=== PATIENT | female | born 1955 | race Caucasian/White ===

== ENCOUNTER 2021-03-20 20:01 | Inpatient (IN) | payer OTHER ==
[~2021-03-20] VITALS: Ht 172.7 cm; Wt 57.2 kg
[2021-03-20] MEDS: POTASSIUM CHLORIDE 50 ML IV SCH ×2 (00:05→22:03)
[2021-03-20] MEDS ORDERED: IV NORMAL SALINE 1000 ML BAG IV ONE (20:30)
[2021-03-20 20:58] LABS: MEAN CORPUSCULAR VOLUME 79.3 fL (75.5-95.3); PLATELET COUNT (AUTO) 281 K/uL (179-408)
[2021-03-20 21:05] LABS: MAGNESIUM 1.6 mg/dL (1.8-2.4)
[2021-03-20 21:17] LABS: ABG BASE EXCESS 17.8 mmol/L; ABG PCO2 64.6 mmHg (35.0-45.0); ABG PH 7.451 (7.350-7.450); ABG PO2 82.2 mmHg (75.0-100.0); ABG SITE LEFT BRACHIAL; ABG TOTAL HEMOGLOBIN 8.3 G/dL (12.0-16.0); COHb 1.1 % (0.5-1.5); O2Hb 94.2 % (94.0-97.0)
[2021-03-20 21:17] LABS: BILIRUBIN,DIRECT 0.2 mg/dL (0.0-0.2); BILIRUBIN,TOTAL 0.5 mg/dL (0.2-1.0); THYROID STIMULATING HORMONE 3.178 mIU/mL (0.358-3.740); TOTAL PROTEIN, SERUM 5.8 g/dL (6.4-8.2)
[2021-03-20 21:19] LABS: POTASSIUM 2.1 mmol/L (3.5-5.1)
[2021-03-20] MEDS ORDERED: MAGNESIUM SULFATE/D5W 300 ML ONE (21:59)
[2021-03-20] MEDS ORDERED: POTASSIUM CHLORIDE 200 ML ONE (21:59)
[2021-03-20] MEDS: MAGNESIUM SULFATE/D5W 100 ML IV SCH ×3 (22:03→23:47)
[2021-03-20] MEDS ORDERED: IV NORMAL SALINE 250 ML IV ONE (22:04)
[2021-03-20] MEDS ORDERED: SWABABLE VALVE TRANSFER SET EA MC ONE (22:04)
[2021-03-20] MEDS ORDERED: IOHEXOL 350 100 ML INFUS..BTL ONE (22:04)
[2021-03-20] MEDS ORDERED: DEXAMETHASONE SOD PHOSPHATE 4 MG INJ IV ONE (22:15)
--- NOTE | 2021-03-20 22:25 | NUR ---
Patient placed on Bipap by RT with Rate of 12, 02 at 100%.
--- NOTE | 2021-03-20 22:26 | NUR ---
PATIENT OUT OF UNIT FOR CT SCAN VIA GURNY WITH RT AND CNC TECHNICIAN
--- NOTE | 2021-03-20 22:38 | NUR ---
PATIENT BACK FROM CT SCAN WITH NO DISTRESS NOTED.
[2021-03-20] MEDS ORDERED: DEXAMETHASONE SOD PHOSPHATE 4 MG INJ ONE (23:06)
[2021-03-20] MEDS ORDERED: BACL10TA PO (23:18)
[2021-03-20] MEDS ORDERED: ESCI10TA PO (23:18)
[2021-03-20] MEDS ORDERED: LEVO175T7 PO (23:18)
[2021-03-20] MEDS ORDERED: AMYL1CAP56 PO (23:18)
[2021-03-20] MEDS ORDERED: norco PO (23:18)
[2021-03-20] MEDS ORDERED: PANT40TA49 PO (23:18)
[2021-03-20] MEDS: CHOLECALCIFEROL 1,000 UNIT TABLET PO SCH (23:30)
--- NOTE | 2021-03-20 23:42 | NUR ---
Dr Escobedo spoke with Tara [facility] [employer] aeronautical drafter for Epic panel who accepts her to ICU.
[2021-03-20] MEDS ORDERED: ACETAMINOPHEN 650 MG SUPP.RECT RC PRN (23:45)
[2021-03-20] MEDS ORDERED: CEFTRIAXONE 1 G in IV DEXTROSE 5% 50 ML IV SCH (23:45)
[2021-03-20] MEDS ORDERED: ALBUTEROL SULFATE 8 GM HFA.AER.AD IH PRN (23:45)
[2021-03-21] VITALS (84 sets, daily range): BP systolic 72–144; BP diastolic 14–114
[2021-03-21] MEDS ORDERED: BUMETANIDE 1 MG/4 ML VIAL IV ONE
[2021-03-21] MEDS ORDERED: CHOLECALCIFEROL 1,000 UNIT TABLET ONE (00:10)
[2021-03-21] MEDS: POTASSIUM CHLORIDE 50 ML IV SCH ×6 (00:30→14:39)
[2021-03-21] MEDS ORDERED: CEFTRIAXONE /D5W 50ML IVPB **ER PYXIS IV ONE (00:45)
[2021-03-21] MEDS ORDERED: AZITHROMYCIN 500MG/ D5W 250ML IVPB **ER PYXIS ONLY IV ONE (00:45)
--- NOTE | 2021-03-21 01:18 | NUR ---
Transfered to ccu via gurny with no distress noted.
--- NOTE | 2021-03-21 01:20 | NUR ---
KCL 10meq IVP 3rd bag continue to infuse at CCU. Gave 4th bag of KCL 10meq to ICU nurse to infuse with zithromax 250mg IVPB.
[2021-03-21] MEDS ORDERED: HYDROCODONE/APAP 5-325MG TABLET PO PRN (01:30)
--- NOTE | 2021-03-21 01:30 | NUR ---
received patient and report from raman , patient on 100 % non rebreather , cool skin to touch , incontinent ,, awake , oriented able to follow simple command , picc line intact on shawn, t tube drain on left lateral /back , bag is empty , incision site on the right lateral back , no signs of infection noted , , abdominal incision , dressing intact , patient is poor historian , no family emergency given by patient when asked , belongings include , tab , 2 cell phones , hot car charger , sweater , shirt and pants, pjs and wallet with id , one credit card and $ 78 in tello
--- NOTE | 2021-03-21 01:45 | NUR ---
patien is placed on bipap 15/5 12 at 100 % fio2
[2021-03-21] MEDS: AZITHROMYCIN IV 500 MG in IV DEXTROSE 5% 250 ML IV SCH ×2 (01:56→21:07)
--- NOTE | 2021-03-21 02:00 | NUR ---
vasques catheter insertion offered , refused
--- NOTE | 2021-03-21 02:15 | NUR ---
kvng lopez is called informed of curent status and vs of the patient , received order of levophed iv
[2021-03-21] MEDS ORDERED: NOREPINEPHRINE BITARTRATE 32 MG in IV NORMAL SALINE 218 ML IV PRN ×2 (02:30→09:00)
[2021-03-21] MEDS ORDERED: NOREPINEPHRINE BITARTRATE 4 MG/4 ML VIAL IV ONE (02:44)
--- NOTE | 2021-03-21 03:23 | NUR ---
kvng lopez is at bedside
[2021-03-21 05:57] LABS: ABG HCO3 40.6 mmol/L; ABG PO2 62.6 mmHg (75.0-100.0); ABG SITE LEFT BRACHIAL; ABG TOTAL HEMOGLOBIN 9.6 G/dL (12.0-16.0); COHb 0.3 % (0.5-1.5); MetHb 0.5 % (0.0-1.5); O2Hb 88.7 % (94.0-97.0); VENT MODE BIPAP
--- NOTE | 2021-03-21 06:00 | NUR ---
vasques catheter offered and refused
[2021-03-21 06:11] LABS: MEAN CORPUSCULAR HEMOGLOBIN 25.5 uug (24.7-32.8); MEAN CORPUSCULAR VOLUME 79.5 fL (75.5-95.3); PLATELET COUNT (AUTO) 391 K/uL (179-408)
[2021-03-21 06:29] LABS: ALANINE AMINOTRANSFERASE < 6 U/L (14-59); ALKALINE PHOSPHATASE 124 U/L (50-136); ASPARTATE AMINOTRANSFERASE 34 U/L (15-37); BILIRUBIN,TOTAL 0.4 mg/dL (0.2-1.0); CHLORIDE 96 mmol/L (98-107); CREATININE 0.9 mg/dL (0.6-1.3); GLUCOSE 179 mg/dL (74-106); TOTAL PROTEIN, SERUM 6.5 g/dL (6.4-8.2); UREA NITROGEN, BLOOD 21 mg/dL (7-18)
--- NOTE | 2021-03-21 06:45 | NUR ---
dr zacarias is called to notify of abg results
[2021-03-21 07:07] LABS: CARBON DIOXIDE 45 mmol/L (21-32); POTASSIUM 2.7 mmol/L (3.5-5.1)
--- NOTE | 2021-03-21 07:16 | NUR ---
dr mancuso gave order of bipap rate of 16 , rt notified
[2021-03-21] MEDS ORDERED: LEVOTHYROXINE SODIUM 175 MCG TABLET PO SCH (07:30)
[2021-03-21] MEDS ORDERED: NOREPINEPHRINE BITARTRATE 8 MG in IV NORMAL SALINE 242 ML IV PRN (08:00)
[2021-03-21] MEDS: LIPASE/PROTEASE/AMYLASE 4200 UNITS CAPSULE.DR PO SCH ×2 (08:16→12:59)
[2021-03-21] MEDS: Z GUARD REMEDY PASTE 57 GM TUBE TOP SCH ×2 (08:19→21:07)
[2021-03-21] MEDS: CHOLECALCIFEROL 1,000 UNIT TABLET PO SCH (08:19)
[2021-03-21] MEDS: BACLOFEN 10 MG TABLET PO SCH ×2 (08:19→16:19)
[2021-03-21] MEDS ORDERED: DEXAMETHASONE SOD PHOSPHATE 4 MG INJ IV SCH (09:00)
[2021-03-21] MEDS ORDERED: ESCITALOPRAM OXALATE 10 MG TABLET PO SCH (09:00)
[2021-03-21] MEDS ORDERED: MAGNESIUM SULFATE/D5W 100 ML IV SCH ×2 (09:00→09:15)
[2021-03-21 09:11] LABS: MAGNESIUM 2.7 mg/dL (1.8-2.4); PHOSPHOROUS 3.1 mg/dL (2.5-4.9)
[2021-03-21] MEDS: FAMOTIDINE. 20 MG/2 ML VIAL IV SCH ×2 (10:22→21:05)
[2021-03-21] MEDS: ACETAzolamide SODIUM 500 MG VIAL IV SCH (10:22)
[2021-03-21] MEDS: ENOXAPARIN SODIUM 40 MG/0.4 ML DISP.SYRIN SQ SCH (10:24)
[2021-03-21] MEDS ORDERED: REMDESIVIR (CHARGED) 200 MG in IV NORMAL SALINE 210 ML IV ONE (11:00)
--- NOTE | 2021-03-21 11:32 | NUR ---
WOUND CARE CONSULT: REVIEWED CHART, NURSING DOCUMENTATION AND PHOTOS WHICH INDICATE SACRAL BONY AREA WITH INTACT DEEP TISSUE INJURY, DISCOLORATION TO FOOT AND SURGICAL SCAR TO ABDOMEN, PRESENT ON ADMISSION. RECOMMENDATIONS MADE FOR SKIN PROTECTION. DISCUSSED WITH NURSING STAFF. PT HAS BIPAP. FIRST STEP LOW AIRLOSS MATTRESS IS ON ORDER. IN AGREEMENT WITH PLAN OF CARE. Addendum: 03/21/21 at 1148 by CHERRY DE LA PAZ RN PER RN, THERE IS A PANCREATIC DRAIN WITH NO DRAINAGE, PRESENT ON ADMISSION. SURGICAL CONSULT CALLED TO DR LUIZ LYNCH. IN AGREEMENT WITH PLAN OF CARE.
[2021-03-21] MEDS ORDERED: BENZOCAINE/MENTH/CETYLPYRD LOZENGE MM PRN (16:45)
[2021-03-21] MEDS ORDERED: TPN/PPN PER PHARMACY IV PRN (16:45)
[2021-03-21] MEDS ORDERED: DEXTROSE 50% 50 ML DISP.SYRIN IV PRN (17:45)
[2021-03-21] MEDS ORDERED: BLOOD SUGAR DIAGNOSTIC 1 EACH STRIP VI SCH (18:00)
--- NOTE | 2021-03-21 19:15 | NUR ---
received patient awake , able to follow command on bipap 20/08 16 at 100 fi02% , levophed at 0.1 mcg picc line at shawn , t tube drainage bag on left lateral bag intact , no drainage vasques intact , bp 94/ 53, 99 % on current saturating , hr 65 , rr 21
--- NOTE | 2021-03-21 19:15 | NUR ---
received report that dr ackerman was consulted today to check the drain t tube patient came with during admission on the left side
[2021-03-21] MEDS ORDERED: TPN BAG #1 IV SCH (20:00)
[2021-03-21] MEDS: DEXAMETHASONE SOD PHOSPHATE 4 MG INJ IV SCH (21:05)
[2021-03-21] MEDS: CEFTRIAXONE 1 G in IV DEXTROSE 5% 50 ML IV SCH (21:06)
--- NOTE | 2021-03-21 23:41 | NUR ---
PATIENT HAS BEEN ON BI/AP WITH FULL MASK, WITH FOAM BACKING UNDER MASK TO PREVENT TISSUE BREAK DOWN, PT AWAKE AT TIMES, SETTINGS, 15/5 R 16 100%;ADJUST MASK AT TIMES, RESLTESS AT TIMES, WEARING PPE , ABG IN AM BEFORE 0700. Ron DEUTSCHP Addendum: 03/21/21 at 2343 by MELISSA ISRAEL RT Amended: Links added.
[2021-03-22] VITALS (96 sets, daily range): BP systolic 50–162; BP diastolic 16–94
[2021-03-22] MEDS: BLOOD SUGAR DIAGNOSTIC 1 EACH STRIP VI SCH ×5 (00:04→23:12)
[2021-03-22] MEDS: INSULIN REGULAR, HUMAN 300 UNIT/3 ML VIAL SQ PRN ×5 (00:14→23:14)
[2021-03-22 05:11] LABS: HEMATOCRIT 30.6 % (31.2-41.9); MEAN CORPUSCULAR HEMOGLOBIN 25.3 uug (24.7-32.8); MEAN CORPUSCULAR VOLUME 80.1 fL (75.5-95.3); PLATELET COUNT (AUTO) 309 K/uL (179-408)
[2021-03-22 05:39] LABS: BILIRUBIN,TOTAL 0.4 mg/dL (0.2-1.0); CREATININE 0.9 mg/dL (0.6-1.3); TOTAL PROTEIN, SERUM 6.4 g/dL (6.4-8.2)
[2021-03-22 05:46] LABS: POTASSIUM 2.8 mmol/L (3.5-5.1)
[2021-03-22 05:56] LABS: MAGNESIUM 2.4 mg/dL (1.8-2.4)
[2021-03-22 06:04] LABS: TRIGLYCERIDES 230 MG/DL (30-150)
--- NOTE | 2021-03-22 06:10 | NUR ---
kvng lopez is notified of current lab works , received order
[2021-03-22] MEDS ORDERED: POTASSIUM CHLORIDE 10 MEQ, LIDOCAINE-MPF 1% 1 ML in IV DEXTROSE 5% 100 ML IV SCH (06:15)
[2021-03-22 06:22] LABS: ABG PCO2 60.1 mmHg (35.0-45.0); ABG PH 7.452 (7.350-7.450); ABG PO2 46.4 mmHg (75.0-100.0); ABG SITE LEFT BRACHIAL; ABG TOTAL HEMOGLOBIN 9.5 G/dL (12.0-16.0); MetHb 0.3 % (0.0-1.5); O2Hb 81.8 % (94.0-97.0); VENT MODE BIPAP
[2021-03-22 06:55] LABS: BAND % (MANUAL) 9 % (0-10); LYMPHOCYTES % (MANUAL) 2 % (20-40); MONOCYTES % (MANUAL) 1 % (2-10); NEUTROPHILS % (MANUAL) 88 % (42-75)
--- NOTE | 2021-03-22 06:56 | NUR ---
potassium with lidocaine not available , has to wait for pharmacy to send the medications
--- NOTE | 2021-03-22 07:00 | NUR ---
dr fuller is at the bedside
[2021-03-22] MEDS: FAMOTIDINE. 20 MG/2 ML VIAL IV SCH ×2 (08:03→20:12)
[2021-03-22] MEDS: DEXAMETHASONE SOD PHOSPHATE 4 MG INJ IV SCH ×2 (08:03→20:12)
[2021-03-22] MEDS: LEVOTHYROXINE SODIUM 100 MCG VIAL IV SCH (08:03)
[2021-03-22] MEDS: ACETAzolamide SODIUM 500 MG VIAL IV SCH (08:03)
[2021-03-22] MEDS: ENOXAPARIN SODIUM 40 MG/0.4 ML DISP.SYRIN SQ SCH (08:04)
[2021-03-22] MEDS: CHOLECALCIFEROL 1,000 UNIT TABLET PO SCH (08:05)
[2021-03-22] MEDS: Z GUARD REMEDY PASTE 57 GM TUBE TOP SCH ×2 (08:05→20:10)
[2021-03-22] MEDS: POTASSIUM CHLORIDE 50 ML IV SCH ×6 (09:42→15:50)
[2021-03-22] MEDS: REMDESIVIR (CHARGED) 100 MG in IV NORMAL SALINE 100 ML IV SCH (13:11)
--- NOTE | 2021-03-22 14:30 | NUR ---
patient had left upper arm picc line placed and called CXR for placement confirmation.
--- NOTE | 2021-03-22 15:10 | NUR ---
Dr. Alfredo at bedside doing right thoracentesis. output was pink clear fluid 980ml. patient post thoracentesis saturating 100% with bipap.
--- NOTE | 2021-03-22 19:30 | NUR ---
PATIENT IN BED ASLEEP ON AND OFF EASILY AWAKENED . OPEN EYES TO NAME AND FOLLOWS COMMANDS.ON BIPAP 20/8 RATE 16 100% FIO2 SATURATION 100 % RR20, SR ON THE HEART MONITOR RATE 62.LEVOPHED DRIP AT 0.05 MCG/KG/MIN TO KEEP SBP >90 MM/HG AND ON TPN DRIP AT 75 ML/HOUR GOAL AT 100 ML.F/C TO BSD WITH YELLOWISH URINE . S/P THORACENTESIS TO HER RIGHT CHEST WITH MEPILEX INTACT AND NO ACTIVE BLEEDING NOTED . LEFT LATERAL SIDE WITH OLD PANCREATIC DRAIN . PATIENT NOW WITH RIGHT PICCLINE (OLD SITE )AND A NEW PICCLINE TO HER LEFT UPPER ARM 3 LUMEN .
--- NOTE | 2021-03-22 19:35 | NUR ---
Pt rec'd on BIPAP settings 20/8, resp. rate 16 and FIO2-100%. No resp. distress noted. Pt to be monitored throughout the shift. No resp. distress noted. BVM at bedside.
[2021-03-22] MEDS ORDERED: TPN BAG #2 IV ONE (20:00)
[2021-03-22] MEDS: CEFTRIAXONE 1 G in IV DEXTROSE 5% 50 ML IV SCH (20:11)
[2021-03-22] MEDS: AZITHROMYCIN IV 500 MG in IV DEXTROSE 5% 250 ML IV SCH (20:11)
[2021-03-22] MEDS: IV NORMAL SALINE 250 ML IV PRN (21:40)
--- NOTE | 2021-03-22 21:41 | NUR ---
PM CARE DONE BATH PATIENT ,CHANGED SOILED LINENS AND GOWN . KEITH CARE DONE AND PERINEAL CARED ONE .PATIENT ALERT BUT VERY WEAK .
[2021-03-23] VITALS (29 sets, daily range): BP systolic 111–162; BP diastolic 51–97
--- NOTE | 2021-03-23 01:45 | NUR ---
PATIENT REMOVING THE BIPAP REORIENTED PATIENT AND ADVISED NOT TO REMOVED BIPAP IT HELPS WITH HER BREATHING .
[2021-03-23] MEDS ORDERED: TPN BAG #3 IV ONE (04:00)
--- NOTE | 2021-03-23 04:30 | NUR ---
AM LABS COLLECTED AND GIVEN TO ELECTRICAL INSTALLATION SUPERVISOR . FLUSHED ALL PORTS.
--- NOTE | 2021-03-23 04:45 | NUR ---
PATIENT INCONTINENT OF STOOL . SOFT BROWNISH IN COLOR . CHANGED SOILED LINENS AND GOWN . SKIN CARE DONE AND APPLY Z GUARD .
[2021-03-23 05:07] LABS: CANCER ANTIGEN 15-3 45.6 U/mL (0.0-25.0)
[2021-03-23 05:10] LABS: HEMATOCRIT 22.3 % (31.2-41.9); PLATELET COUNT (AUTO) 119 K/uL (179-408)
[2021-03-23 05:12] LABS: MEAN CORPUSCULAR HEMOGLOBIN 25.3 uug (24.7-32.8); MEAN CORPUSCULAR VOLUME 80.3 fL (75.5-95.3)
--- NOTE | 2021-03-23 05:15 | NUR ---
PORTABLE CHEST XRAY DONE BT PATROL SUPERVISOR AT B/S.
[2021-03-23] MEDS: BLOOD SUGAR DIAGNOSTIC 1 EACH STRIP VI SCH ×3 (05:18→18:29)
[2021-03-23] MEDS: INSULIN REGULAR, HUMAN 300 UNIT/3 ML VIAL SQ PRN ×3 (05:26→18:29)
[2021-03-23 05:42] LABS: ALANINE AMINOTRANSFERASE 6 U/L (14-59); ALKALINE PHOSPHATASE 113 U/L (50-136); ASPARTATE AMINOTRANSFERASE 33 U/L (15-37); BILIRUBIN,TOTAL 0.2 mg/dL (0.2-1.0); CHLORIDE 101 mmol/L (98-107); CREATININE 0.7 mg/dL (0.6-1.3); FERRITIN 833 ng/mL (8-252); GLUCOSE 194 mg/dL (74-106); LACTATE DEHYDROGENASE 349 U/L (81-234); PHOSPHOROUS 2.6 mg/dL (2.5-4.9); POTASSIUM 3.2 mmol/L (3.5-5.1); TOTAL PROTEIN, SERUM 5.2 g/dL (6.4-8.2); UREA NITROGEN, BLOOD 25 mg/dL (7-18)
[2021-03-23 05:50] LABS: ABG BASE EXCESS 13.1 mmol/L; ABG HCO3 39.7 mmol/L; ABG PCO2 66.4 mmHg (35.0-45.0); ABG PH 7.395 (7.350-7.450); ABG PO2 89.9 mmHg (75.0-100.0); ABG SITE LEFT RADIAL; ABG TOTAL HEMOGLOBIN 8.2 G/dL (12.0-16.0); COHb 0.2 % (0.5-1.5); MetHb 0.3 % (0.0-1.5); O2Hb 95.8 % (94.0-97.0); VENT MODE BIPAP 20/8
[2021-03-23 05:52] LABS: MAGNESIUM 2.1 mg/dL (1.8-2.4)
[2021-03-23 05:57] LABS: BILIRUBIN,DIRECT < 0.1 mg/dL (0.0-0.2); CARBON DIOXIDE 43 mmol/L (21-32)
--- NOTE | 2021-03-23 06:01 | NUR ---
called [facility] for abnormal labs this morning with order to given 1 unit prbc and to give 20 meq kcl potassium ivpb
--- NOTE | 2021-03-23 06:15 | NUR ---
explained to patient that she needs blood PRBC 1UNIT patient verbalized understanding and signed the consent for blood transfusion .
--- NOTE | 2021-03-23 09:33 | NUR ---
pt receiving 1 unit PRBC, will continue to monitor.
[2021-03-23] MEDS: POTASSIUM CHLORIDE 50 ML IV SCH ×6 (09:41→14:08)
[2021-03-23] MEDS: FAMOTIDINE. 20 MG/2 ML VIAL IV SCH ×2 (09:48→21:26)
[2021-03-23] MEDS: DEXAMETHASONE SOD PHOSPHATE 4 MG INJ IV SCH ×2 (09:48→21:26)
[2021-03-23] MEDS: LEVOTHYROXINE SODIUM 100 MCG VIAL IV SCH (09:49)
[2021-03-23] MEDS: CHOLECALCIFEROL 1,000 UNIT TABLET PO SCH ×2 (09:51→10:08)
[2021-03-23] MEDS: Z GUARD REMEDY PASTE 57 GM TUBE TOP SCH ×2 (09:51→21:27)
[2021-03-23] MEDS: ACETAzolamide SODIUM 500 MG VIAL IV SCH (09:51)
[2021-03-23] MEDS: ENOXAPARIN SODIUM 40 MG/0.4 ML DISP.SYRIN SQ SCH (09:53)
--- NOTE | 2021-03-23 10:09 | NUR ---
pt did not pass nursing bedside swallow evalualtion, unable to admin PO medication
[2021-03-23] MEDS: REMDESIVIR (CHARGED) 100 MG in IV NORMAL SALINE 100 ML IV SCH (11:16)
[2021-03-23] MEDS ORDERED: TPN BAG #4 IV ONE (14:00)
--- NOTE | 2021-03-23 15:00 | NUR ---
RT PT WAS TAKEN OFF BIPAP AND PLACE ON 15LPM VIA NRB FOR WEANING OFF BIPAP TRIAL. PT FAILED. PT SPO2 <80% AFTER 10MIN. PT WAS PLACE BACK ON BIPAP MASK SECURED AND INTACT WITH GEL PROTECTOR. RN AT BED SIDE SPO2 BACK UP TO >92% ALARMS ON AND AUDIBLE. NO ABG WAS DONE . WILL CONTINUE TO MONITOR PT
--- NOTE | 2021-03-23 15:00 | NUR ---
pt was taken off bipap for weaning trial and placed on nonrebreather at 15L. Pt started to desat <80% after about 10 minutes. pt put back on bipap, saturating over 90%, no signs of distress, no ABG done at this time.
--- NOTE | 2021-03-23 19:30 | NUR ---
patient in room -sleeping on and off ,easily arousable to name . patient on bipap 20/8 rate 16 fio2 100% ,saturation 99% rr 14 to 16, bipap mask is secured to the face with gel .NPO status patient failed swallow evaluation .SR on the heart monitor rate 66. with right and left upper arm piccline .off LEVOPHED DRIP .TPN DRIP in progress and on accu-chek q6 hourly follow ISS . patient with left lateral side with tube -drain (t-tube)intact cloudy milky concentrated residual about 50 ml. f/c to bsd , call light placed with in reach and advised patient to call for assistance .
[2021-03-23] MEDS: CEFTRIAXONE 1 G in IV DEXTROSE 5% 50 ML IV SCH (21:26)
[2021-03-23] MEDS: AZITHROMYCIN IV 500 MG in IV DEXTROSE 5% 250 ML IV SCH (21:26)
--- NOTE | 2021-03-23 21:45 | NUR ---
inconvenient of stool soft brownish in color ,changed soiled linens and gown . z guard applied to sacral area and cover wit Mepilex . advised patient to call if wet so that nurse can changed her . call Light placed with reach .
--- NOTE | 2021-03-23 23:15 | NUR ---
patient called using the call light and verbalized she wants something to drink to drink informed her that she failed swallow eval and shes prone for aspiration . oral care done .
[2021-03-24] VITALS (23 sets, daily range): BP systolic 130–166; BP diastolic 63–100
[2021-03-24] MEDS ORDERED: TPN BAG # 5 IV ONE
--- NOTE | 2021-03-24 00:34 | NUR ---
fingerstick done and follow iss , turned and reposition patient offloaded back and bilateral heel elevated with pillows .
[2021-03-24] MEDS: BLOOD SUGAR DIAGNOSTIC 1 EACH STRIP VI SCH ×4 (01:31→18:59)
[2021-03-24] MEDS: INSULIN REGULAR, HUMAN 300 UNIT/3 ML VIAL SQ PRN ×4 (01:32→18:59)
--- NOTE | 2021-03-24 02:00 | NUR ---
sleeping in bed ,tolerating bipap .
--- NOTE | 2021-03-24 04:30 | NUR ---
am care done ,bath patient ,incontinent of stool soft brownies moderate in amt .z guard applied to sacral area and cover with Mepilex. turned and reposition patient .
[2021-03-24 05:24] LABS: HEMATOCRIT 27.2 % (31.2-41.9); MEAN CORPUSCULAR HEMOGLOBIN 25.9 uug (24.7-32.8); MEAN CORPUSCULAR VOLUME 81.9 fL (75.5-95.3); PLATELET COUNT (AUTO) 104 K/uL (179-408)
[2021-03-24 05:40] LABS: ALANINE AMINOTRANSFERASE 9 U/L (14-59); ALKALINE PHOSPHATASE 137 U/L (50-136); ASPARTATE AMINOTRANSFERASE 33 U/L (15-37); BILIRUBIN,TOTAL 0.2 mg/dL (0.2-1.0); CARBON DIOXIDE 34 mmol/L (21-32); CHLORIDE 101 mmol/L (98-107); CREATININE 0.5 mg/dL (0.6-1.3); GLUCOSE 272 mg/dL (74-106); MAGNESIUM 2.1 mg/dL (1.8-2.4); PHOSPHOROUS 2.5 mg/dL (2.5-4.9); POTASSIUM 3.8 mmol/L (3.5-5.1); TOTAL PROTEIN, SERUM 5.5 g/dL (6.4-8.2); TRIGLYCERIDES 69 MG/DL (30-150); UREA NITROGEN, BLOOD 25 mg/dL (7-18)
[2021-03-24 05:50] LABS: BILIRUBIN,DIRECT < 0.1 mg/dL (0.0-0.2)
[2021-03-24 06:22] LABS: ABG BASE EXCESS -5.7 mmol/L; ABG HCO3 19.3 mmol/L; ABG PCO2 35.1 mmHg (35.0-45.0); ABG PH 7.357 (7.350-7.450); ABG SITE RIGHT BRACHIAL; ABG TOTAL HEMOGLOBIN 5.6 G/dL (12.0-16.0); COHb 0.3 % (0.5-1.5); MetHb 0.9 % (0.0-1.5); O2Hb 58.7 % (94.0-97.0); VENT MODE BIPAP 20/8
[2021-03-24 06:52] LABS: *RHEUMATOID FACTOR SCREEN NEGATIVE (NEGATIVE)
[2021-03-24] MEDS ORDERED: FUROSEMIDE 40 MG/4 ML VIAL IV ONE (08:00)
[2021-03-24] MEDS: FAMOTIDINE. 20 MG/2 ML VIAL IV SCH ×2 (08:12→20:11)
[2021-03-24] MEDS: DEXAMETHASONE SOD PHOSPHATE 4 MG INJ IV SCH ×2 (08:12→20:11)
[2021-03-24] MEDS: LEVOTHYROXINE SODIUM 100 MCG VIAL IV SCH (08:13)
[2021-03-24] MEDS: Z GUARD REMEDY PASTE 57 GM TUBE TOP SCH ×2 (08:17→20:12)
[2021-03-24] MEDS: ENOXAPARIN SODIUM 40 MG/0.4 ML DISP.SYRIN SQ SCH (08:18)
[2021-03-24] MEDS: POTASSIUM CHLORIDE 50 ML IV SCH ×2 (08:23→09:11)
[2021-03-24] MEDS ORDERED: BUMETANIDE 1 MG/4 ML VIAL IV ONE (09:00)
--- NOTE | 2021-03-24 09:13 | NUR ---
bumex nonadministered, lasix given MD aware.
[2021-03-24] MEDS ORDERED: TPN BAG #6 IV ONE (10:00)
[2021-03-24] MEDS ORDERED: IV FAT EMULSIONS 20% 250 ML IV PRN (10:15)
[2021-03-24] MEDS: REMDESIVIR (CHARGED) 100 MG in IV NORMAL SALINE 100 ML IV SCH (11:21)
--- NOTE | 2021-03-24 12:45 | NUR ---
WOUND CARE FOLLOW UP: PER RN, RT BACK WOUND IS NOW DRAINING. CULTURE BEING SENT BY NURSING STAFF. REACHED DR LUIZ LYNCH AND PER WOUND SURGERY Silva ARANGO , LOADING MACHINE OPERATOR SURGEON RECOMMENDED. RN TO DISCUSS WITH DR LEIVA.
--- NOTE | 2021-03-24 19:45 | NUR ---
patient noted to be very anxious removed BIPAP ,called respiratory therapist spoked with Vladimir and informed him to come right now patient removed BIPAP .advised patient not to removed BIPAP ,educated patient informed the importance of BIPAP for her breathing .call light placed with in reach and instructed to call for assistacne and not to gt out on bed .
[2021-03-24] MEDS ORDERED: TPN BAG # 7 IV ONE (20:00)
--- NOTE | 2021-03-24 20:00 | NUR ---
v/s done patient afebrile . bipap 20/8 rate 16 fio2 100% , saturation 100% rr 25 , hob up .receiving TPN and LIPIDS see emar , no s/s of pain ,advised patient to call for help and assistance .
[2021-03-24] MEDS: CEFTRIAXONE 1 G in IV DEXTROSE 5% 50 ML IV SCH (20:11)
[2021-03-24] MEDS: AZITHROMYCIN IV 500 MG in IV DEXTROSE 5% 250 ML IV SCH (20:12)
--- NOTE | 2021-03-24 22:00 | NUR ---
pm care done ,incontinent of stool ,yellowish liquid moderate amt of stool . changed soiled liens and gown , irrigated flesiseal patent .perianal care and Arreaga care done . z guard applied to bilateral groin and sacral area ,placed Mepilex.turned and reposition patient .
--- NOTE | 2021-03-24 23:59 | NUR ---
PATIENT ON BI/PAP WITH FULL MASK, 20/8, RR16, FIO2 @ 100%, PT MOVES MASK OFF FACE AT TIMES, REST\LESS AT TIMES, ADJUST MASK AT TIMES, SLIGHT CONGESTION WHEN COUGHING, PT NEEDS ENCOURAGEMENT TO TAKE SLOW DEEP BREATHS, SA 100%. Ron DEUTSCHP Addendum: 03/25/21 at 0001 by MELISSA ISRAEL RT Amended: Links added.
[2021-03-25] VITALS (24 sets, daily range): BP systolic 122–167; BP diastolic 67–102
[2021-03-25] MEDS: BLOOD SUGAR DIAGNOSTIC 1 EACH STRIP VI SCH ×4 (00:36→18:27)
[2021-03-25] MEDS: INSULIN REGULAR, HUMAN 300 UNIT/3 ML VIAL SQ PRN ×4 (00:38→18:28)
[2021-03-25] MEDS: IV NORMAL SALINE 250 ML IV PRN (05:08)
[2021-03-25 05:12] LABS: HEMATOCRIT 26.6 % (31.2-41.9); MEAN CORPUSCULAR HEMOGLOBIN 25.9 uug (24.7-32.8); MEAN CORPUSCULAR VOLUME 80.9 fL (75.5-95.3); PLATELET COUNT (AUTO) 95 K/uL (179-408)
[2021-03-25 05:31] LABS: BILIRUBIN,DIRECT 0.1 mg/dL (0.0-0.2); BILIRUBIN,TOTAL 0.4 mg/dL (0.2-1.0); CREATININE 0.5 mg/dL (0.6-1.3); PHOSPHOROUS 2.7 mg/dL (2.5-4.9); POTASSIUM 3.8 mmol/L (3.5-5.1); TOTAL PROTEIN, SERUM 5.6 g/dL (6.4-8.2)
[2021-03-25] MEDS ORDERED: TPN BAG #8 IV ONE (06:00)
[2021-03-25 06:20] LABS: ABG BASE EXCESS 5.2 mmol/L; ABG HCO3 30.3 mmol/L; ABG PCO2 47.1 mmHg (35.0-45.0); ABG PH 7.426 (7.350-7.450); ABG PO2 57.7 mmHg (75.0-100.0); ABG SITE LEFT RADIAL; ABG TOTAL HEMOGLOBIN 9.5 G/dL (12.0-16.0); COHb 0.1 % (0.5-1.5); MetHb 0.2 % (0.0-1.5); O2Hb 89.4 % (94.0-97.0); VENT MODE BIPAP
--- NOTE | 2021-03-25 07:15 | NUR ---
Received pt. on BIPAP 25/11 Rate of 16, FIO2% of 100. No respiratory distress noted at this moment. Patient AAOx2-4 with periods of anxiety. Hemodynamically stable sbp within desire limits. vasques to gravity Drainage left flank area suctioning patent. will continue to monitor
[2021-03-25] MEDS: LEVOTHYROXINE SODIUM 100 MCG VIAL IV SCH ×2 (08:07→08:18)
[2021-03-25] MEDS: FAMOTIDINE. 20 MG/2 ML VIAL IV SCH ×2 (08:07→20:40)
[2021-03-25] MEDS: DEXAMETHASONE SOD PHOSPHATE 4 MG INJ IV SCH ×2 (08:08→20:40)
[2021-03-25] MEDS: Z GUARD REMEDY PASTE 57 GM TUBE TOP SCH ×2 (08:08→20:37)
--- NOTE | 2021-03-25 08:10 | NUR ---
Pulmonary services, Dr. Gonsalves in the unit to follow up on pt. report given see order hx.
[2021-03-25] MEDS ORDERED: ACETAzolamide SODIUM 500 MG VIAL IV ONE (08:30)
[2021-03-25 09:06] LABS: *IMMUNOGLOBULIN G, SERUM 1450 mg/dL (586-1602); IMMUNOGLOBULIN A, SERUM 439 mg/dL (87-352); IMMUNOGLOBULIN M, SERUM 83 mg/dL (26-217)
[2021-03-25] MEDS: REMDESIVIR (CHARGED) 100 MG in IV NORMAL SALINE 100 ML IV SCH (10:53)
[2021-03-25] MEDS ORDERED: TPN BAG #9 IV SCH (16:00)
--- NOTE | 2021-03-25 18:37 | NUR ---
Left pt. on BIPAP 20/8 Rate of 16, FIO2% of 100. No respiratory distress noted at this moment. Patient AAOx2-4 with periods of anxiety and multiple attempts to GOB unsupervised and for safety precautions Fist step-mattress deflated. Hemodynamically stable sbp within desire limits. vasques to gravity with adequate urine output. Rectal tube patent. Drainage left flank area suctioning patent. will continue to monitor
[2021-03-25] MEDS: CEFTRIAXONE 1 G in IV DEXTROSE 5% 50 ML IV SCH (20:40)
[2021-03-25] MEDS ORDERED: INSULIN GLARGINE,HUM 300 UNITS/3 ML CARTRIDGE SQ SCH (21:00)
[2021-03-25] MEDS: ENOXAPARIN SODIUM 40 MG/0.4 ML DISP.SYRIN SQ SCH (21:55)
[2021-03-26] VITALS (25 sets, daily range): BP systolic 97–171; BP diastolic 39–93
--- NOTE | 2021-03-26 00:10 | NUR ---
PATIENT ON CONT BI/PAP WIT FULL MASK, ADJUST MASK, PT SEMI AWAKE, SETTINGS ,20/8. R16 . FIO2 100%, PT RESTLESS AT TIMES, NO BI/PAP CHANGES MADE, PT STABLE , SAT 97% APPROX. Ron ISRAEL RCP Addendum: 03/26/21 at 0014 by MELISSA BASS Amended: Links added.
[2021-03-26] MEDS: BLOOD SUGAR DIAGNOSTIC 1 EACH STRIP VI SCH ×4 (00:22→18:15)
[2021-03-26] MEDS: INSULIN REGULAR, HUMAN 300 UNIT/3 ML VIAL SQ PRN ×4 (00:23→18:25)
[2021-03-26] MEDS ORDERED: TPN BAG #10 IV SCH (02:00)
[2021-03-26] MEDS: IV NORMAL SALINE 250 ML IV PRN (04:11)
[2021-03-26 05:30] LABS: HEMATOCRIT 25.7 % (31.2-41.9); MEAN CORPUSCULAR HEMOGLOBIN 25.7 uug (24.7-32.8); MEAN CORPUSCULAR VOLUME 81.6 fL (75.5-95.3); PLATELET COUNT (AUTO) 109 K/uL (179-408)
[2021-03-26 06:10] LABS: CARBON DIOXIDE 31 mmol/L (21-32); CHLORIDE 104 mmol/L (98-107); CREATININE 0.3 mg/dL (0.6-1.3); GLUCOSE 206 mg/dL (74-106); MAGNESIUM 2.2 mg/dL (1.8-2.4); PHOSPHOROUS 2.5 mg/dL (2.5-4.9); UREA NITROGEN, BLOOD 21 mg/dL (7-18)
--- NOTE | 2021-03-26 07:10 | NUR ---
Received pt. on BIPAP 25/11 Rate of 16, FIO2% of 100. No respiratory distress noted at this moment. Patient AAOx2-4 compliant with pt. care at this time. Hemodynamically stable sbp within desire limits. Awaiting cryoprecipitate to be transfused. vasques to gravity Drainage left flank area suctioning patent. will continue to monitor
[2021-03-26] MEDS: LEVOTHYROXINE SODIUM 100 MCG VIAL IV SCH (08:00)
[2021-03-26] MEDS: FAMOTIDINE. 20 MG/2 ML VIAL IV SCH ×2 (08:00→21:27)
[2021-03-26] MEDS: DEXAMETHASONE SOD PHOSPHATE 4 MG INJ IV SCH ×2 (08:00→21:27)
[2021-03-26] MEDS: Z GUARD REMEDY PASTE 57 GM TUBE TOP SCH ×2 (08:01→21:33)
--- NOTE | 2021-03-26 08:15 | NUR ---
Pulmonary services, Dr. Gonsalves in the unit to see and examine pt. report given see order hx.
--- NOTE | 2021-03-26 08:47 | NUR ---
Cryoprecipitate product received and as informed by flower shop laborer/designer Douglas, verification process might not go all the way through. Documentation on blood transfusion done on paper work and place in pt's file.
--- NOTE | 2021-03-26 11:00 | NUR ---
Attending Physician Violet Mcleod in the unit to follow up on pt. report given.
--- NOTE | 2021-03-26 11:05 | NUR ---
FIO2 at 90%.
[2021-03-26] MEDS: hydrALAZINE HCL 20 MG/1 ML VIAL IV PRN (11:56)
[2021-03-26] MEDS ORDERED: TPN BAG #11 IV SCH (12:00)
[2021-03-26 12:06] LABS: HEPATITIS B SURFACE AG Negative (Negative)
[2021-03-26] MEDS: METRONIDAZOLE 500 MG/NS 100ML 500 MG in PREMIXED 1 EACH IV SCH (17:58)
--- NOTE | 2021-03-26 18:15 | NUR ---
PT PLACED ON HFNC 40 LPM, 100% FIO2 + 15 LPM NRB MASK. DOUBLE SETUP. PT IS KEEPING SPO2 > 88%. PT IS AWAKE, ALERT AND RESPONSIVE. MILD DISTRESS, T[place]NE[place] NOTED. BIPAP ON STANDBY. WILL CONTINUE TO MONITOR.
--- NOTE | 2021-03-26 18:56 | NUR ---
Left pt. on high flow 40L and 100% FIO2. No respiratory distress noted at this moment. Patient AAOx2-4 compliant with pt. care at this time. Hemodynamically stable sbp within desire limits. Tolerated transfusion of cryoprecipitate with no adverse event. vasques to gravity Drainage left flank area suctioning patent. will continue to monitor
[2021-03-26] MEDS: INSULIN GLARGINE,HUM 300 UNITS/3 ML CARTRIDGE SQ SCH (21:25)
[2021-03-26] MEDS: ENOXAPARIN SODIUM 40 MG/0.4 ML DISP.SYRIN SQ SCH (21:26)
[2021-03-26] MEDS: CEFTRIAXONE 1 G in IV DEXTROSE 5% 50 ML IV SCH (21:27)
[2021-03-26] MEDS ORDERED: TPN BAG #12 IV SCH (22:00)
[2021-03-27] VITALS (24 sets, daily range): BP systolic 120–158; BP diastolic 51–88
--- NOTE | 2021-03-27 00:42 | NUR ---
PATIENT WAS ON HIGH FLOW 100% WITH NRB MASK TILL 19:30 WITH DE SAT 79% APPROX, PT THEN PLACE ON BI/PAP WITH 100% SETTINGS, 25/11 RR16 100% WITH MED MASK, PAR[place] Moore NOTIFIED, PT IMPROVED AERATION AND SAT 97%, WILL MONITOR CLOSELY .Ron DEUTSCHP Addendum: 03/27/21 at 0044 by MELISSA ISRAEL RT Amended: Links added.
[2021-03-27] MEDS: BLOOD SUGAR DIAGNOSTIC 1 EACH STRIP VI SCH ×4 (00:55→17:00)
[2021-03-27] MEDS: INSULIN REGULAR, HUMAN 300 UNIT/3 ML VIAL SQ PRN ×4 (00:55→17:02)
[2021-03-27] MEDS: METRONIDAZOLE 500 MG/NS 100ML 500 MG in PREMIXED 1 EACH IV SCH ×3 (02:58→17:03)
[2021-03-27 05:13] LABS: HEMATOCRIT 25.2 % (31.2-41.9); MEAN CORPUSCULAR VOLUME 81.7 fL (75.5-95.3); PLATELET COUNT (AUTO) 115 K/uL (179-408)
[2021-03-27 05:52] LABS: ABG BASE EXCESS 0.7 mmol/L; ABG HCO3 26.3 mmol/L; ABG PCO2 47.2 mmHg (35.0-45.0); ABG PH 7.364 (7.350-7.450); ABG PO2 65.3 mmHg (75.0-100.0); ABG SITE LEFT RADIAL; COHb 0.4 % (0.5-1.5); O2Hb 91.4 % (94.0-97.0); VENT MODE BIPAP
[2021-03-27 06:16] LABS: A/G RATIO 0.6 (0.7-1.7); ALBUMIN 2.1 g/dL (2.9-4.4); ALPHA-1-GLOBULIN 0.4 g/dL (0.0-0.4); ALPHA-2-GLOBULIN 0.7 g/dL (0.4-1.0); BETA GLOBULIN 0.8 g/dL (0.7-1.3); GAMMA GLOBULIN 1.5 g/dL (0.4-1.8); GLOBULIN, TOTAL 3.4 g/dL (2.2-3.9); M-SPIKE Not Observed g/dL (Not Observed)
[2021-03-27 06:34] LABS: ALANINE AMINOTRANSFERASE 21 U/L (14-59); ALKALINE PHOSPHATASE 223 U/L (50-136); ASPARTATE AMINOTRANSFERASE 37 U/L (15-37); BILIRUBIN,DIRECT 0.1 mg/dL (0.0-0.2); BILIRUBIN,TOTAL 0.3 mg/dL (0.2-1.0); CARBON DIOXIDE 31 mmol/L (21-32); CHLORIDE 105 mmol/L (98-107); CREATININE 0.3 mg/dL (0.6-1.3); FERRITIN 788 ng/mL (8-252); GLUCOSE 171 mg/dL (74-106); LACTATE DEHYDROGENASE 423 U/L (81-234); MAGNESIUM 2.1 mg/dL (1.8-2.4); PHOSPHOROUS 2.9 mg/dL (2.5-4.9); POTASSIUM 3.7 mmol/L (3.5-5.1); TOTAL PROTEIN, SERUM 5.7 g/dL (6.4-8.2); UREA NITROGEN, BLOOD 22 mg/dL (7-18)
--- NOTE | 2021-03-27 07:10 | NUR ---
Received pt. AAOx4. On BIPAP 20/8 rate of 16, and 100% FIO2. Pt. quickly desaturating when oral care provided not tolerating it well. Hemodynamically stable on sinus rhythm rates in the 60-80's. sbp within desired limits. vasques to gravity and drainage to left flank area yellowish greenish in color, old surgical drainage to righ lower lateral area with colostomy bag attaches with foul yellowish output. Will continue with care plan.
--- NOTE | 2021-03-27 07:40 | NUR ---
Pulmonary services, Dr. Gonsalves in the unit to see and examine pt. report given see orders hx.
[2021-03-27] MEDS: DEXAMETHASONE SOD PHOSPHATE 4 MG INJ IV SCH ×2 (08:00→20:35)
[2021-03-27] MEDS: LEVOTHYROXINE SODIUM 100 MCG VIAL IV SCH (08:01)
[2021-03-27] MEDS: FAMOTIDINE. 20 MG/2 ML VIAL IV SCH ×2 (08:01→20:34)
[2021-03-27] MEDS: Z GUARD REMEDY PASTE 57 GM TUBE TOP SCH ×2 (08:01→20:36)
--- NOTE | 2021-03-27 09:00 | NUR ---
Attending physician Dr. Lazo in the unit to see and examine pt. report given, orders to continue with care plan received.
[2021-03-27 09:06] LABS: *ANTI-SCLERODERMA-70 AB <0.2 AI (0.0-0.9); *SJOGREN'S ANTI-SS-A <0.2 AI (0.0-0.9); *SJOGREN'S ANTI-SS-B <0.2 AI (0.0-0.9); *SMITH ANTIBODIES <0.2 AI (0.0-0.9); ANTI-DNA(DS) AB, QN <1 IU/mL (0-9)
[2021-03-27] MEDS: IV FAT EMULSIONS 20% 250 ML IV SCH (11:57)
[2021-03-27] MEDS ORDERED: TPN BAG #13 IV SCH ×2 (12:00→14:00)
[2021-03-27] MEDS: POTASSIUM CHLORIDE 50 ML IV SCH ×2 (12:21→13:38)
[2021-03-27] MEDS: IV NORMAL SALINE 250 ML IV PRN (17:09)
--- NOTE | 2021-03-27 17:56 | NUR ---
Left pt. sleeping intermittently. During shift AAoX4. On BIPAP 20/8 rate of 16, and 100% FIO2. Pt. quickly desaturating when oral care provided not tolerating it well. Hemodynamically stable on sinus rhythm rates in the 60-80's. sbp within desired limits. vasques to gravity and drainage to left area patent and connected to bag, old surgical drainage to righ lower lateral area with colostomy bag, Dressing around area C.DI. Vasques to gravity with romain out-put. IV lines patent and infusing with both [id number]. No new skin breakdown no injury sustained, Will endorse for continuity of care.
--- NOTE | 2021-03-27 18:17 | NUR ---
A call from Drew pt's significant other and at this time she's requesting to have a call from car worker At this time he was updated on pt's current condition and as stated by him pt. herself is txt him stating "I wanna go home I wanna sit down and I wanna talk to some-one" Mr. Russell educated on isolation precautions and he verbalized understanding.
--- NOTE | 2021-03-27 19:00 | NUR ---
Received patient awake, A/Ox4. Denies pain at this time. No signs of acute distress noted. On Bipap machine with the settings of 20/8, rate of 16, and FiO2 100%. NSR on the monitor, HR=77bpm; CONSTANTINO PICC and MASSIMO PICC line with ongoing lipids and TPN, NS@TKO. Surgical site at the right flank area with colostomy bag draining to dark red output. Left flank area with drainage bag, with no output. Dressing around clean, dry and intact. Arreaga catheter draining well to gravity. Flexiseal intact.
[2021-03-27] MEDS: CEFTRIAXONE 1 G in IV DEXTROSE 5% 50 ML IV SCH (20:37)
[2021-03-27] MEDS: ENOXAPARIN SODIUM 40 MG/0.4 ML DISP.SYRIN SQ SCH (20:39)
[2021-03-27] MEDS: INSULIN GLARGINE,HUM 300 UNITS/3 ML CARTRIDGE SQ SCH (21:16)
[2021-03-28] VITALS (24 sets, daily range): BP systolic 122–155; BP diastolic 48–79
[2021-03-28] MEDS ORDERED: TPN BAG #14 IV SCH
[2021-03-28] MEDS: BLOOD SUGAR DIAGNOSTIC 1 EACH STRIP VI SCH ×4 (01:10→17:48)
[2021-03-28] MEDS: INSULIN REGULAR, HUMAN 300 UNIT/3 ML VIAL SQ PRN ×4 (01:11→17:49)
--- NOTE | 2021-03-28 02:00 | NUR ---
Resting comfortably. No significant change of condition noted. Will continue to monitor closely.
[2021-03-28] MEDS: METRONIDAZOLE 500 MG/NS 100ML 500 MG in PREMIXED 1 EACH IV SCH ×3 (02:03→17:51)
--- NOTE | 2021-03-28 04:00 | NUR ---
AM care done. Linen changed. Dressing changed clean, dry and intact.
[2021-03-28 05:19] LABS: HEMATOCRIT 24.9 % (31.2-41.9); MEAN CORPUSCULAR HEMOGLOBIN 26.1 uug (24.7-32.8); MEAN CORPUSCULAR VOLUME 81.7 fL (75.5-95.3); PLATELET COUNT (AUTO) 138 K/uL (179-408)
[2021-03-28 05:39] LABS: CARBON DIOXIDE 32 mmol/L (21-32); CHLORIDE 105 mmol/L (98-107); CREATININE 0.4 mg/dL (0.6-1.3); GLUCOSE 215 mg/dL (74-106); MAGNESIUM 1.9 mg/dL (1.8-2.4); POTASSIUM 3.8 mmol/L (3.5-5.1); UREA NITROGEN, BLOOD 21 mg/dL (7-18)
[2021-03-28 05:54] LABS: TRIGLYCERIDES 66 MG/DL (30-150)
--- NOTE | 2021-03-28 06:14 | NUR ---
Per RT Jared, patient refused to draw ABG. Explained risk and benefits x 3. Still patient's refused to do ABG. Will informed next shift RN.
--- NOTE | 2021-03-28 06:43 | NUR ---
Seen and examined by Dr. Bustos, report given, with no new orders.
--- NOTE | 2021-03-28 07:21 | NUR ---
Left patient awake, on bipap machine with the same settings. Denies pain at this time. No signs of acute distress noted. NSR on the monitor, HR=79bpm; CONSTANTINO PICC and MASSIMO PICC line with ongoing lipids and TPN, NS@TKO. Surgical site at the right flank area with colostomy bag. Left flank area with drainage bag. Dressing around clean, dry and intact. Arreaga catheter draining well to gravity. Flexiseal intact. Endorsed to LOUIS Oliveros for continuity of care.
[2021-03-28] MEDS: LEVOTHYROXINE SODIUM 100 MCG VIAL IV SCH (08:00)
[2021-03-28] MEDS: DEXAMETHASONE SOD PHOSPHATE 4 MG INJ IV SCH ×2 (08:00→20:26)
[2021-03-28] MEDS: Z GUARD REMEDY PASTE 57 GM TUBE TOP SCH ×2 (08:00→20:27)
[2021-03-28] MEDS: FAMOTIDINE. 20 MG/2 ML VIAL IV SCH ×2 (08:00→20:26)
--- NOTE | 2021-03-28 08:46 | NUR ---
Received pt.. On BIPAP 20/8 rate of 16, and 100% FIO2. Pt. with ADLS pt. desaturates to mid-80's Hemodynamically stable on sinus rhythm rates in the 60-80's. sbp within desired limits. vasques to gravity and drainage to left area patent and connected to bag, old surgical drainage to righ lower lateral area with colostomy bag attached, Dressing around area C.DI. Vasques to gravity with romain out-put. IV lines patent and infusing with both TPN LIPIDS. No new skin breakdown no injury sustained, Will continue with care plan.
--- NOTE | 2021-03-28 08:50 | NUR ---
pulmonary services, Dr. Gonsalves in the unit to see and examine pt. report given, see order hx,.
[2021-03-28] MEDS ORDERED: TPN BAG #15 IV SCH (10:00)
--- NOTE | 2021-03-28 11:19 | NUR ---
ornamental ironworker helper Savannah in the unit to follow up on pt. Pt's significant other Mr. Russell phone number given to her.
--- NOTE | 2021-03-28 12:08 | NUR ---
Social Work Consult Karan JAUREGUI, advised this junior copywriter that the 65 year old patient has been threatening to leave the hospital despite her COVID pneumonia status. Patient is not comprehending the seriousness of her illness. Patient is not accessible by phone and is on non-rebreather mask. Attempted to reach her significant other at [phone] but he is not answering his phone and there is no option to leave a message. This junior copywriter asked the nurses to advise if he calls. set up worker will do her best to educate them re the dangers of patient leaving the hospital and try to intervene to prevent this since this is a public health risk and a grave risk to the patient.. Will follow up if the significant other is accessible by phone or if he calls ICU.
--- NOTE | 2021-03-28 15:45 | NUR ---
Pt's at bedside at this time SW called to be informed of his visit.
--- NOTE | 2021-03-28 19:21 | NUR ---
Left pt.. On BIPAP 20/8 rate of 16, and 100% FIO2. Pt. with ADLS pt. desaturates to mid-80's Hemodynamically stable on sinus rhythm rates in the 60-80's. sbp within desired limits. vasques to gravity and drainage to left area patent and connected to bag, old surgical drainage to righ lower lateral area with colostomy bag attached, Dressing around area C.DI. Vasques to gravity with romain out-put. IV lines patent and infusing with tpn No new skin breakdown no injury sustained, Will continue with care plan.
--- NOTE | 2021-03-28 19:30 | NUR ---
rounds made patient in bed ,asleep no easily arousable open eyes to name,follow simple commands . maex4 slow and very weak .when asked patient verbalized no pain .watching tv . BIPAP used 20/8 rate 16 fio2 100% ,patient rr 22 saturation 100% ,none labored breathing right and left chest diminished breath sound ,no secretion with dry cough , tolerating bipap settings . NPO ,tpn nutrition infusing via the left upper arm piccline . f/s to bsd with yellowish urine. rectal tube patent and with loose ,liquid brownish stool . SR 74 on the heart monitor . call light placed with in reach and advised to call for help /assistance . COVID + protocol for isolation precaution observed .
[2021-03-28] MEDS ORDERED: TPN BAG #16 IV SCH (20:00)
[2021-03-28] MEDS: CEFTRIAXONE 1 G in IV DEXTROSE 5% 50 ML IV SCH (20:28)
[2021-03-28] MEDS: ENOXAPARIN SODIUM 40 MG/0.4 ML DISP.SYRIN SQ SCH (20:29)
--- NOTE | 2021-03-28 21:17 | NUR ---
fingerstick done 172 given LANTUS insulin HS DOSE .
[2021-03-28] MEDS: INSULIN GLARGINE,HUM 300 UNITS/3 ML CARTRIDGE SQ SCH (21:20)
[2021-03-28] MEDS: IV NORMAL SALINE 250 ML IV PRN (21:25)
--- NOTE | 2021-03-28 22:30 | NUR ---
PICCLINE dressing changed done aseptically to her right and left upper arm .time and signed .
--- NOTE | 2021-03-28 23:35 | NUR ---
pm care done ,bath patient ,Arreaga care/perineal care done .applied z guard + hydrogel to bilateral groin and sacral area cover with Mepilex . turned and reposition patient offloaded back with pillow heels elevated .
[2021-03-29] VITALS (24 sets, daily range): BP systolic 108–144; BP diastolic 45–78
--- NOTE | 2021-03-29 | NUR ---
fingerstick done and result 133 regular insulin given follow insulin sliding scale.
[2021-03-29] MEDS: BLOOD SUGAR DIAGNOSTIC 1 EACH STRIP VI SCH ×4 (00:01→17:49)
[2021-03-29] MEDS: INSULIN REGULAR, HUMAN 300 UNIT/3 ML VIAL SQ PRN ×4 (00:02→18:00)
--- NOTE | 2021-03-29 00:30 | NUR ---
wound photo taken and placed in chart ,wound care done .
[2021-03-29 01:06] LABS: ALDOSTERONE <1.0 ng/dL (0.0-30.0)
--- NOTE | 2021-03-29 01:30 | NUR ---
patient in bed on and off watching tv or on her phone ,advised to sleep and informed about the time .
[2021-03-29] MEDS: METRONIDAZOLE 500 MG/NS 100ML 500 MG in PREMIXED 1 EACH IV SCH ×3 (02:08→17:30)
--- NOTE | 2021-03-29 02:30 | NUR ---
turned and reposition patient .off loaded back with pillows .
--- NOTE | 2021-03-29 04:30 | NUR ---
am labs collected done via the right piccline ,flushed ports .
[2021-03-29 05:14] LABS: ABG BASE EXCESS 3.6 mmol/L; ABG HCO3 29.5 mmol/L; ABG PCO2 52.6 mmHg (35.0-45.0); ABG PH 7.367 (7.350-7.450); ABG PO2 122.5 mmHg (75.0-100.0); ABG SITE LEFT RADIAL; ABG TOTAL HEMOGLOBIN 8.3 G/dL (12.0-16.0); COHb 0.1 % (0.5-1.5); MetHb 0.6 % (0.0-1.5); O2Hb 97.5 % (94.0-97.0)
[2021-03-29 05:14] LABS: HEMATOCRIT 23.7 % (31.2-41.9); MEAN CORPUSCULAR HEMOGLOBIN 26.5 uug (24.7-32.8); MEAN CORPUSCULAR VOLUME 82.7 fL (75.5-95.3); PLATELET COUNT (AUTO) 137 K/uL (179-408)
[2021-03-29 05:33] LABS: CARBON DIOXIDE 35 mmol/L (21-32); CHLORIDE 106 mmol/L (98-107); CREATININE 0.3 mg/dL (0.6-1.3); GLUCOSE 181 mg/dL (74-106); MAGNESIUM 2.1 mg/dL (1.8-2.4); PHOSPHOROUS 3.2 mg/dL (2.5-4.9); POTASSIUM 3.9 mmol/L (3.5-5.1); UREA NITROGEN, BLOOD 24 mg/dL (7-18)
[2021-03-29 05:54] LABS: BAND % (MANUAL) 1 % (0-10); LYMPHOCYTES % (MANUAL) 1 % (20-40); METAMYELOCYTES % 2 % (0-1); MONOCYTES % (MANUAL) 1 % (2-10); NEUTROPHILS % (MANUAL) 95 % (42-75)
[2021-03-29] MEDS ORDERED: TPN BAG #17 IV SCH (06:00)
--- NOTE | 2021-03-29 06:00 | NUR ---
respiratory therapist reduced fio2 bipap settings drop to 80% c/o morning abg po2 =122.5(H).
--- NOTE | 2021-03-29 07:30 | NUR ---
received change of shift report pt in bed resting, watching tv, alert and oriented, pt on bipap settings of 20/8, 100%, 16 rate, no signs of distress, no reports of pain at this time. pt voiding via vasques, romain urine, flexiseal in place, pt positive for Cdiff in stool, contact isolation inplace. pt on droplet and contatc isolation for COVID. afebrile, picc lines on right and left upper arms, drain on left side of flank and open wound on right side flank draining into colostomy bag. will continue to monitor.
[2021-03-29] MEDS: LEVOTHYROXINE SODIUM 100 MCG VIAL IV SCH (08:21)
[2021-03-29] MEDS: FAMOTIDINE. 20 MG/2 ML VIAL IV SCH ×2 (08:24→20:09)
[2021-03-29] MEDS: DEXAMETHASONE SOD PHOSPHATE 4 MG INJ IV SCH ×2 (08:26→20:09)
[2021-03-29] MEDS: Z GUARD REMEDY PASTE 57 GM TUBE TOP SCH ×2 (08:28→20:10)
--- NOTE | 2021-03-29 08:33 | NUR ---
pt switch off bipap to 100% nonrebreather, no signs of distress, pt tolerating well, pt verbally stated she was fine with the nonrebreather. bipap at bedside if needed, will continue to monitor.
--- NOTE | 2021-03-29 09:09 | NUR ---
0833 BIPAP REMOVED AND PLACED ON 100% NON REBREATHER MASK. PT AWAKE ALERT RESPONSIVE TOLERATING BEING OFF BIPAP FINE WITH NO EVIDENCE OF RESPIRATORY DISTRESS. SPO2 WITHIN NORMAL LIMITS. BIPAP ON STAND BY. WILL CONTINUE TO MONITOR.
--- NOTE | 2021-03-29 11:33 | NUR ---
PT PLACED ON VAPOTHERM 40LPM/100% ALONG WITH 100% NRB MASK. SPO2 MAINTAINING ABOVE 88%.
[2021-03-29] MEDS: IV FAT EMULSIONS 20% 250 ML IV SCH (11:37)
--- NOTE | 2021-03-29 11:50 | NUR ---
pt stated she wanted her friend/neighbor who has over 40+ nursing experience to be added to her chart as an advocate for her health. Admitting added the following name to pt chart per pt, Amina Polo phone number is . tried calling SW to follow up, will try again.
[2021-03-29 13:07] LABS: VENT MODE BIPAP 20/8
--- NOTE | 2021-03-29 14:00 | NUR ---
Pt was able to tolerate being off bipap for 5.5hrs, O2 levels started to drop >80%, pt placed back on bipap, see RT notes for settings. Pt tolerating bipap, saturating above 88%, no signs of distress, will continue to monitor.
--- NOTE | 2021-03-29 14:06 | NUR ---
PT PLACED BACK ON BIPAP TO MAINTAIN SPO2 ABOVE 88%. IPAP 20/ EPAP/8/80% FIO2
[2021-03-29] MEDS ORDERED: TPN BAG #18 IV SCH (15:00)
[2021-03-29] MEDS: ALPRAZOLAM 0.25 MG TABLET PO PRN (15:01)
--- NOTE | 2021-03-29 17:29 | NUR ---
PT WAS OFF OF BIPAP FROM 0830 TO 1400. PT REMAINS ON CURRENT BIPAP SETTINGS IPAP20/EPAP8/ FIO2 80%. BIPAP MASK WAS SWITCHED TO UNDER THE NOSE CUSHION TO RELIEF PRESSURE ON BRIDGE OF NOSE.
[2021-03-29] MEDS: CEFTRIAXONE 1 G in IV DEXTROSE 5% 50 ML IV SCH (20:09)
--- NOTE | 2021-03-29 20:16 | NUR ---
fingerstick done result 174 mg/dl , Lantus insulin 12 units given subcutaneously see emar.
--- NOTE | 2021-03-29 20:20 | NUR ---
photo taken on patient bridge of the nose DTI-redness , c/o bipap face mask it created pressure .
[2021-03-29] MEDS: INSULIN GLARGINE,HUM 300 UNITS/3 ML CARTRIDGE SQ SCH (20:36)
[2021-03-29] MEDS: ENOXAPARIN SODIUM 40 MG/0.4 ML DISP.SYRIN SQ SCH (20:36)
--- NOTE | 2021-03-29 20:43 | NUR ---
patient called and asked for pain medication shes takes morphine before and said xanax is not working for her for pain control . called Where services.
--- NOTE | 2021-03-29 20:59 | NUR ---
went to turned and reposition patient . patient said can you just straighten my pillows and sheets.
[2021-03-29] MEDS: MORPHINE SULFATE 2 MG/1 ML DISP.SYRIN IV PRN (21:49)
[2021-03-30] VITALS (24 sets, daily range): BP systolic 110–160; BP diastolic 57–88
[2021-03-30] MEDS: BLOOD SUGAR DIAGNOSTIC 1 EACH STRIP VI SCH ×5 (00:21→23:51)
[2021-03-30] MEDS: INSULIN REGULAR, HUMAN 300 UNIT/3 ML VIAL SQ PRN ×5 (00:23→23:52)
[2021-03-30] MEDS: ALPRAZOLAM 0.25 MG TABLET PO PRN ×2 (00:28→21:10)
--- NOTE | 2021-03-30 00:28 | NUR ---
Xanax requested by patient crushed medication and given with sip of water.
--- NOTE | 2021-03-30 00:35 | NUR ---
PATIENT MOSTLY ON BI/PAP FOR THE NOC, SETTINGS, 20/8, RR16, 80%, PT TENDS TO BREATH RAPID AT TIMES, REPOSITION PT , ADJUST MASK, PT IS COMPLAINING IF DRY MOUTH , FIO2 @ 80%. Ron ISRAEL RCP Addendum: 03/30/21 at 0038 by MELISSA ISRAEL RT Amended: Links added.
[2021-03-30] MEDS ORDERED: TPN BAG #19 IV SCH (01:00)
--- NOTE | 2021-03-30 01:00 | NUR ---
turned and reposition ,lotion to back area and upper and lower extremities . z guard applied to sacral and bilateral groin areas . patient awake and alert and able to verbalized needs .patient with cell phone with barboza board and able to write needs. patient also able to speak but with bipap its hard to understand.
[2021-03-30] MEDS: METRONIDAZOLE 500 MG/NS 100ML 500 MG in PREMIXED 1 EACH IV SCH ×3 (01:16→17:56)
--- NOTE | 2021-03-30 04:10 | NUR ---
am labs collected and flushed piccline given to phlebotomy specialist .
[2021-03-30 05:05] LABS: HEMATOCRIT 24.3 % (31.2-41.9); MEAN CORPUSCULAR HEMOGLOBIN 26.5 uug (24.7-32.8); MEAN CORPUSCULAR VOLUME 83.6 fL (75.5-95.3); PLATELET COUNT (AUTO) 124 K/uL (179-408)
[2021-03-30 05:16] LABS: CARBON DIOXIDE 33 mmol/L (21-32); CHLORIDE 107 mmol/L (98-107); CREATININE 0.4 mg/dL (0.6-1.3); GLUCOSE 229 mg/dL (74-106); MAGNESIUM 2.2 mg/dL (1.8-2.4); PHOSPHOROUS 3.3 mg/dL (2.5-4.9); UREA NITROGEN, BLOOD 33 mg/dL (7-18)
--- NOTE | 2021-03-30 05:30 | NUR ---
respiratory did oral care and assisted patient able to tolerate sips of water .
[2021-03-30 05:58] LABS: ABG BASE EXCESS 4.7 mmol/L; ABG PCO2 48.9 mmHg (35.0-45.0); ABG PH 7.405 (7.350-7.450); ABG PO2 127.1 mmHg (75.0-100.0); ABG SITE LEFT RADIAL; ABG TOTAL HEMOGLOBIN 7.6 G/dL (12.0-16.0); COHb 1.1 % (0.5-1.5); MetHb 0.3 % (0.0-1.5); O2Hb 97.2 % (94.0-97.0); VENT MODE BIPAP
--- NOTE | 2021-03-30 06:00 | NUR ---
ABG FIO2 =127.1 respiratory therapist decrease the bipap fio2 to 70%.
--- NOTE | 2021-03-30 07:30 | NUR ---
pt alert and awake in bed, speaking full sentences, easier to understand today. pt on bipap, 20/ 70% rate 16. no signs of respiratory distress, no reports of pain at this time. pt a/ox3, continuing TPN and lipids, PICC line son left and right upper arms, patent, dressing in tact, clean. pt voiding via vasques, flexiseal in place. will continue to monitor.
[2021-03-30] MEDS: Z GUARD REMEDY PASTE 57 GM TUBE TOP SCH ×2 (08:29→20:31)
[2021-03-30] MEDS: DEXAMETHASONE SOD PHOSPHATE 4 MG INJ IV SCH ×2 (08:30→20:29)
[2021-03-30] MEDS: LEVOTHYROXINE SODIUM 100 MCG VIAL IV SCH (08:31)
[2021-03-30] MEDS: FAMOTIDINE. 20 MG/2 ML VIAL IV SCH ×2 (08:31→20:29)
--- NOTE | 2021-03-30 08:32 | NUR ---
0750 BIPAP REMOVED AND PLACED ON VAPOTHERM 40 LPM / 100% FIO2. PT AWAKE ALERT RESPONSIVE SHOWING NO SIGNS OF RESPIRATORY DISTRESS. SPO2 WITHIN NORMAL LIMITS. WILL CONTINUE TO MONITOR
[2021-03-30] MEDS ORDERED: TPN BAG #20 IV SCH (11:00)
[2021-03-30] MEDS ORDERED: DEXTROSE 50% 50 ML DISP.SYRIN IV PRN (11:30)
--- NOTE | 2021-03-30 12:23 | NUR ---
WOUND CARE CONSULT: REVIEWED CHART, NURSING DOCUMENTATION AND PHOTO WHICH INDICATES REDNESS TO NASAL BRIDGE. PT IS NOT ON BIPAP AT THIS TIME. RECOMMENDATIONS MADE FOR SKIN PROTECTION. DISCUSSED WITH NURSING STAFF. IN AGREEMENT WITH PLAN OF CARE. Addendum: 03/30/21 at 1226 by CHERRY DE LA PAZ RN PER NURSING STAFF, PT PREVIOUSLY WAS MOVING ABOUT WHEN BIPAP MASK WAS ON. NURSING STAFF TO DISCOURAGE THIS IN FUTURE.
--- NOTE | 2021-03-30 13:30 | NUR ---
radiology called to give results of reading of venous doppler, hospitalist contacted and made aware. new orders to be carried out
--- NOTE | 2021-03-30 13:30 | NUR ---
pt significant other, Drew, called to check on pt. Updates given to him and concerns addressed. pt states she wanted to go home for a week to see family. Pt spoken to by hospitalist about the risks of leaving in her condition, per hospitalist pt understood. social work to follow up
[2021-03-30] MEDS: APIXABAN 5 MG TABLET PO SCH ×2 (13:38→20:31)
--- NOTE | 2021-03-30 13:51 | NUR ---
Social Work Consult Patient is intermittnely telling friends and staff that she wanst to go home. Patient was sleeping soundly when this social media community manager came to see her and and so no intervention was made today. patient appears frail and debilitated and so needs to be educated re the outcome if she were to leave the hospital AMA. It is hoped she agrees to continue to receive treatment in ICU
--- NOTE | 2021-03-30 15:00 | NUR ---
Sandra from [employer] called regarding pt. Wants to notify CM upon discharge to contact [employer] about reimplementing pt TPN.
--- NOTE | 2021-03-30 15:28 | NUR ---
PT PLACED ON 100% NRB MASK. SPO2 95%
[2021-03-30] MEDS: IV NORMAL SALINE 250 ML IV PRN (17:54)
--- NOTE | 2021-03-30 19:00 | NUR ---
Received patient awake, A/Ox4, denies pain at this time. No signs of acute distress noted. On NRB mask @15LPM, O2 sat=80%. CONSTANTINO PICC line and MASSIMO PICC line with ongoing TPN as ordered, patent and flushed. Accordeon drainage bag located at left lateral abdomen, draining to brownish in color with an output of 150cc. Old right surgical site with colostomy bag noted, draining to dark reddish in color with an output of 50cc. Arreaga catheter draining well to gravity. Flexiseal intact. Will continue to monitor closely.
[2021-03-30] MEDS: INSULIN GLARGINE,HUM 300 UNITS/3 ML CARTRIDGE SQ SCH (20:30)
[2021-03-30] MEDS ORDERED: TPN BAG #21 IV SCH (21:00)
[2021-03-30] MEDS: MORPHINE SULFATE 2 MG/1 ML DISP.SYRIN IV PRN (23:42)
[2021-03-31] VITALS (19 sets, daily range): BP systolic 133–169; BP diastolic 62–82
[2021-03-31] MEDS: METRONIDAZOLE 500 MG/NS 100ML 500 MG in PREMIXED 1 EACH IV SCH ×3 (02:00→18:01)
[2021-03-31] MEDS: hydrALAZINE HCL 20 MG/1 ML VIAL IV PRN (03:16)
--- NOTE | 2021-03-31 04:30 | NUR ---
Placed on NRB mask @ 15LPM c/o RT Vladimir.
--- NOTE | 2021-03-31 04:43 | NUR ---
PATIENT AT START OF SHIFT WAS ON NRB MASK @ 100%, THEN DE SAT 85%, PT PLACED ON BI/PAP MACHINE , TITRATE TO 100% TO 80%, ADJUST MASK SEVERAL TIMES, WORKING WITH NURSING, RE POSITION PATIENT, SEVERAL TIMES, TAKE HER OFF BI/PAP IN AM FOR ABG; PLACE HER ON NRB MASK @ 100% FOR ABG; . Ron DEUTSCHP Addendum: 03/31/21 at 0446 by MELISSA ISRAEL RT Amended: Links added.
[2021-03-31 04:59] LABS: MEAN CORPUSCULAR VOLUME 84.6 fL (75.5-95.3)
[2021-03-31 05:01] LABS: HEMATOCRIT 22.8 % (31.2-41.9); MEAN CORPUSCULAR HEMOGLOBIN 26.7 uug (24.7-32.8); PLATELET COUNT (AUTO) 132 K/uL (179-408)
[2021-03-31 05:17] LABS: CARBON DIOXIDE 36 mmol/L (21-32); CHLORIDE 108 mmol/L (98-107); CREATININE 0.3 mg/dL (0.6-1.3); GLUCOSE 176 mg/dL (74-106); MAGNESIUM 2.1 mg/dL (1.8-2.4); PHOSPHOROUS 2.9 mg/dL (2.5-4.9); POTASSIUM 3.9 mmol/L (3.5-5.1); UREA NITROGEN, BLOOD 29 mg/dL (7-18)
[2021-03-31] MEDS: BLOOD SUGAR DIAGNOSTIC 1 EACH STRIP VI SCH ×4 (05:25→23:54)
[2021-03-31] MEDS: INSULIN REGULAR, HUMAN 300 UNIT/3 ML VIAL SQ PRN ×4 (05:31→23:54)
--- NOTE | 2021-03-31 06:27 | NUR ---
Patient removes NRB multiple times. Explained risk and benefits x3. Verbalized understanding.
--- NOTE | 2021-03-31 06:42 | NUR ---
Left patient asleep, on NRB mask @15LPM, CONSTANTINO PICC and MASSIMO PICC line with ongoing TPN. Both drainage bag emptied and dressing changed c/d/i. Arreaga catheter draining well to gravity. Flexiseal intact. Endorsed to next shift for continuity of care. Addendum: 03/31/21 at 0644 by Sondra Grubbs RN VSS. ABG done c/o RT Vladimir.
[2021-03-31 06:50] LABS: ABG BASE EXCESS 4.8 mmol/L; ABG HCO3 31.6 mmol/L; ABG PCO2 60.8 mmHg (35.0-45.0); ABG PH 7.334 (7.350-7.450); ABG PO2 62.8 mmHg (75.0-100.0); ABG SITE LEFT RADIAL; COHb 0.6 % (0.5-1.5); MetHb 0.3 % (0.0-1.5); O2Hb 89.3 % (94.0-97.0)
--- NOTE | 2021-03-31 07:30 | NUR ---
pt resting in bed, on nonrebreather mask 15L, saturating at 97%, no signs of respiratory distress. pt PICC lines are intact and patent both left and right side. Fluids infusing are TPN, and NS-tko. no reports of pain reported, will continue to monitor
[2021-03-31] MEDS: LEVOTHYROXINE SODIUM 100 MCG VIAL IV SCH (08:50)
[2021-03-31] MEDS: FAMOTIDINE. 20 MG/2 ML VIAL IV SCH ×2 (08:50→20:16)
[2021-03-31] MEDS: DEXAMETHASONE SOD PHOSPHATE 4 MG INJ IV SCH ×2 (08:52→20:15)
[2021-03-31] MEDS: Z GUARD REMEDY PASTE 57 GM TUBE TOP SCH ×2 (09:22→20:19)
[2021-03-31] MEDS: APIXABAN 5 MG TABLET PO SCH ×2 (09:33→20:18)
[2021-03-31] MEDS: IV FAT EMULSIONS 20% 250 ML IV SCH (11:27)
[2021-03-31] MEDS ORDERED: TPN BAG #22 IV SCH (15:00)
[2021-03-31] MEDS: IV NORMAL SALINE 250 ML IV PRN (18:24)
--- NOTE | 2021-03-31 19:10 | NUR ---
mouth is very dry with some old dry blood noted
--- NOTE | 2021-03-31 19:10 | NUR ---
received patient with lipids running at 10.471 ml along with tpn at 100 ml , right upper arm swollen with some weeping , no distress on 100 % nrb noted
--- NOTE | 2021-03-31 19:10 | NUR ---
received patient awake , on 100 % NRB, TPN running at 100 ml , picc line , rectal tube and vasques intact , right lateral incision with covered colostomy bag used draining with brown drainage , left t tube on left incision intact
--- NOTE | 2021-03-31 21:00 | NUR ---
aria is here to see patient
[2021-03-31] MEDS: MORPHINE SULFATE 2 MG/1 ML DISP.SYRIN IV PRN (21:35)
[2021-03-31] MEDS: INSULIN GLARGINE,HUM 300 UNITS/3 ML CARTRIDGE SQ SCH (22:37)
[2021-03-31] MEDS: CEFTRIAXONE 1 G in IV DEXTROSE 5% 50 ML IV SCH (22:38)
[2021-04-01] VITALS (24 sets, daily range): BP systolic 109–171; BP diastolic 56–94
[2021-04-01] MEDS ORDERED: TPN BAG #23 IV SCH (01:00)
--- NOTE | 2021-04-01 01:15 | NUR ---
patient was labored breathing on 100 % nrb , placed on bipap 20/8 16 80 % fio2
--- NOTE | 2021-04-01 01:15 | NUR ---
Pt placed on BIPAP settings 20/8, resp. rate 16 and FIO2-80%. No resp. distress noted. Pt to be monitored throughout the shift. No resp. distress noted. BVM at bedside.
[2021-04-01] MEDS: METRONIDAZOLE 500 MG/NS 100ML 500 MG in PREMIXED 1 EACH IV SCH ×3 (01:45→17:31)
--- NOTE | 2021-04-01 05:30 | NUR ---
patient was place on 100 % nrb for abg in am , refused to be completely be cleaned , wants to be left alone and sleep , thad sharma was here to see patient , updates given , tpn running tpn , lipid 10. 417 ml , bilateral arms swollen , rectal tube and vasques intact , t tube bag on the left is intact no output , right colostomy bag has 10 ml output with brownish color
[2021-04-01 06:20] LABS: ABG BASE EXCESS 4.5 mmol/L; ABG HCO3 30.6 mmol/L; ABG PCO2 55.5 mmHg (35.0-45.0); ABG PH 7.359 (7.350-7.450); ABG PO2 55.3 mmHg (75.0-100.0); ABG SITE RIGHT RADIAL; ABG TOTAL HEMOGLOBIN 7.8 G/dL (12.0-16.0); COHb 0.3 % (0.5-1.5); MetHb 0.2 % (0.0-1.5); O2Hb 86.8 % (94.0-97.0)
[2021-04-01] MEDS: BLOOD SUGAR DIAGNOSTIC 1 EACH STRIP VI SCH ×3 (06:53→18:31)
[2021-04-01] MEDS: INSULIN REGULAR, HUMAN 300 UNIT/3 ML VIAL SQ PRN ×3 (06:54→18:34)
[2021-04-01] MEDS: DEXAMETHASONE SOD PHOSPHATE 4 MG INJ IV SCH ×2 (09:31→20:57)
[2021-04-01] MEDS: FAMOTIDINE. 20 MG/2 ML VIAL IV SCH ×2 (09:31→20:58)
[2021-04-01] MEDS: APIXABAN 5 MG TABLET PO SCH ×2 (09:35→20:59)
[2021-04-01] MEDS: LEVOTHYROXINE SODIUM 100 MCG VIAL IV SCH (09:42)
[2021-04-01] MEDS: Z GUARD REMEDY PASTE 57 GM TUBE TOP SCH ×2 (09:43→21:00)
[2021-04-01] MEDS ORDERED: TPN BAG #24 IV SCH (11:00)
[2021-04-01 11:38] LABS: HEMATOCRIT 24.5 % (31.2-41.9); MEAN CORPUSCULAR HEMOGLOBIN 27.4 uug (24.7-32.8); MEAN CORPUSCULAR VOLUME 86.8 fL (75.5-95.3); PLATELET COUNT (AUTO) 274 K/uL (179-408)
[2021-04-01 12:37] LABS: CARBON DIOXIDE 33 mmol/L (21-32); CHLORIDE 108 mmol/L (98-107); CREATININE 0.4 mg/dL (0.6-1.3); GLUCOSE 234 mg/dL (74-106); MAGNESIUM 2.2 mg/dL (1.8-2.4); PHOSPHOROUS 2.8 mg/dL (2.5-4.9); POTASSIUM 3.8 mmol/L (3.5-5.1); UREA NITROGEN, BLOOD 31 mg/dL (7-18)
[2021-04-01] MEDS ORDERED: MAGNESIUM SULFATE/D5W 100 ML IV SCH (14:00)
[2021-04-01] MEDS: IV NORMAL SALINE 250 ML IV PRN (14:48)
[2021-04-01] MEDS ORDERED: POTASSIUM PHOSPHATE MM 15 MMOL in IV NORMAL SALINE 250 ML IV ONE (15:00)
--- NOTE | 2021-04-01 19:10 | NUR ---
received the patient on the [facility] 97.8
--- NOTE | 2021-04-01 19:10 | NUR ---
received patient awake , slightly lethargic , on 100 % nrb with , tpn at 100 ml picc line is intact on the left hand , right arm is swollen with some weeping , vasques and rectal tube , t- tube bag intact , no output on left lateral side surgical incision . right lateral incision , colostomy bag used to drain is intact with brownish drainage
--- NOTE | 2021-04-01 20:45 | NUR ---
aria id is here to see patient , updates given about the patient
[2021-04-01] MEDS ORDERED: TPN BAG #25 IV SCH (21:00)
[2021-04-01] MEDS: INSULIN GLARGINE,HUM 300 UNITS/3 ML CARTRIDGE SQ SCH (21:30)
[2021-04-01] MEDS: CEFTRIAXONE 1 G in IV DEXTROSE 5% 50 ML IV SCH (22:46)
[2021-04-01] MEDS: MORPHINE SULFATE 2 MG/1 ML DISP.SYRIN IV PRN (22:54)
--- NOTE | 2021-04-01 23:00 | NUR ---
patient was taken off the [facility]ney [facility]ger as per patient's request
--- NOTE | 2021-04-01 23:24 | NUR ---
ngt was removed and attempted to reinsert because of original cxr malposition , patient easily desaturated and attempt was ceased to patient;s breathing difficulty Addendum: 04/01/21 at 6015 by MOIZ JOE RN wrong patient charting for ngt
[2021-04-02] VITALS (26 sets, daily range): BP systolic 110–179; BP diastolic 45–82
[2021-04-02] MEDS: INSULIN REGULAR, HUMAN 300 UNIT/3 ML VIAL SQ PRN ×5 (00:38→23:34)
[2021-04-02] MEDS: BLOOD SUGAR DIAGNOSTIC 1 EACH STRIP VI SCH ×5 (00:40→23:33)
--- NOTE | 2021-04-02 01:45 | NUR ---
placed on bipap 20/8 16 at 80 % fio2
[2021-04-02] MEDS: METRONIDAZOLE 500 MG/NS 100ML 500 MG in PREMIXED 1 EACH IV SCH ×3 (02:12→18:20)
--- NOTE | 2021-04-02 06:00 | NUR ---
ariza is here to see patient , placed on a 100 % nrb
[2021-04-02 08:04] LABS: MEAN CORPUSCULAR HEMOGLOBIN 27.4 uug (24.7-32.8); MEAN CORPUSCULAR VOLUME 86.9 fL (75.5-95.3); PLATELET COUNT (AUTO) 228 K/uL (179-408)
[2021-04-02 08:14] LABS: CARBON DIOXIDE 37 mmol/L (21-32); CHLORIDE 109 mmol/L (98-107); CREATININE 0.3 mg/dL (0.6-1.3); GLUCOSE 179 mg/dL (74-106); MAGNESIUM 2.2 mg/dL (1.8-2.4); PHOSPHOROUS 2.9 mg/dL (2.5-4.9); POTASSIUM 3.8 mmol/L (3.5-5.1); UREA NITROGEN, BLOOD 32 mg/dL (7-18)
[2021-04-02] MEDS: LEVOTHYROXINE SODIUM 100 MCG VIAL IV SCH (08:14)
[2021-04-02] MEDS: DEXAMETHASONE SOD PHOSPHATE 4 MG INJ IV SCH ×2 (08:14→15:45)
[2021-04-02] MEDS: FAMOTIDINE. 20 MG/2 ML VIAL IV SCH ×2 (08:15→20:45)
[2021-04-02] MEDS: Z GUARD REMEDY PASTE 57 GM TUBE TOP SCH ×2 (08:15→21:18)
[2021-04-02 08:16] LABS: HEMATOCRIT 20.2 % (31.2-41.9)
[2021-04-02] MEDS: APIXABAN 5 MG TABLET PO SCH (08:19)
--- NOTE | 2021-04-02 08:19 | NUR ---
Contacted [facility] to report critical values of Hgb 6.4
[2021-04-02] MEDS ORDERED: MAGNESIUM SULFATE IV SCH (11:00)
[2021-04-02] MEDS ORDERED: [UNRECOGNIZED DRUG - OTHER] IV SCH (11:00)
[2021-04-02] MEDS ORDERED: POTASSIUM PHOSPHATE MM IV SCH (11:00)
[2021-04-02 11:06] LABS: RENIN 0.456 ng/mL/hr (0.167-5.380)
--- NOTE | 2021-04-02 19:00 | NUR ---
Received patient awake, A/Ox4, denies pain at this time, no signs of acute distress noted. On NRB mask @ 15LPM, O2 sat 94%. CONSTANTINO PICC line and MASSIMO PICC line with ongoing TPN as ordered. Accordeon drainage bag at L lateral abdomen, draining to brownish in color, amounting to 10cc. Abdominal dressing in place at the old right surgical site. Arreaga catheter draining well to gravity. Flexiseal intact.
--- NOTE | 2021-04-02 19:30 | NUR ---
Placed on Bipap machine c/o RT Matthew.
--- NOTE | 2021-04-02 20:45 | NUR ---
Patient noted to be pale in color, bradycardia HR=30-40s, unresponsive. Accucheck done which revealed 198. Deep sternal rub done. HR increased to 80s. Called code blue. Dr. Escobedo at bedside, with stat orders, ABG, CBC, CMP labs.
[2021-04-02] MEDS ORDERED: TPN BAG #27 IV SCH (21:00)
[2021-04-02 21:11] LABS: ABG BASE EXCESS -1.6 mmol/L; ABG HCO3 29.3 mmol/L; ABG PCO2 98.6 mmHg (35.0-45.0); ABG PH 7.091 (7.350-7.450); ABG PO2 52.3 mmHg (75.0-100.0); ABG SITE LEFT RADIAL; MetHb 0.3 % (0.0-1.5); O2Hb 75.4 % (94.0-97.0); VENT MODE BIPAP 20/8
[2021-04-02 21:15] LABS: HEMATOCRIT 26.1 % (31.2-41.9); MEAN CORPUSCULAR HEMOGLOBIN 29.1 uug (24.7-32.8); MEAN CORPUSCULAR VOLUME 90.8 fL (75.5-95.3); PLATELET COUNT (AUTO) 319 K/uL (179-408)
[2021-04-02] MEDS ORDERED: SODIUM BICARBONATE 8.4% 50 MEQ/50 ML DISP.SYRIN IV STA (21:17)
[2021-04-02] MEDS: INSULIN GLARGINE,HUM 300 UNITS/3 ML CARTRIDGE SQ SCH (21:20)
--- NOTE | 2021-04-02 21:20 | NUR ---
Per Dr. Escobedo, to give 1 amp of NaHCO3. Bipap settings changed to I:E 26/8, rate 30, FiO2 100% c/o RT Matthew. Patient noted to be pinkish in color, OM=430, YR=928/73, O2 sat=96%, RR=32. Will continue to monitor closely.
[2021-04-02 21:23] LABS: BILIRUBIN,TOTAL 0.5 mg/dL (0.2-1.0); CREATININE 0.5 mg/dL (0.6-1.3); POTASSIUM 4.7 mmol/L (3.5-5.1); TOTAL PROTEIN, SERUM 5.2 g/dL (6.4-8.2)
--- NOTE | 2021-04-02 22:00 | NUR ---
Called EPIC exchange. Darian Varghese NP made aware of patient's condition.
[2021-04-02] MEDS: CEFTRIAXONE 1 G in IV DEXTROSE 5% 50 ML IV SCH (22:13)
--- NOTE | 2021-04-02 22:30 | NUR ---
Patient is awake, able to move extremities. VSS. Will continue to monitor closely.
[2021-04-02 22:40] LABS: ABG BASE EXCESS 5.6 mmol/L; ABG HCO3 33.5 mmol/L; ABG PCO2 73.2 mmHg (35.0-45.0); ABG PH 7.279 (7.350-7.450); ABG PO2 196.5 mmHg (75.0-100.0); ABG SITE LEFT RADIAL; ABG TOTAL HEMOGLOBIN 8.4 G/dL (12.0-16.0); COHb 0.3 % (0.5-1.5); MetHb 0.4 % (0.0-1.5); O2Hb 98.5 % (94.0-97.0); VENT MODE BIPAP 26/8
--- NOTE | 2021-04-02 23:00 | NUR ---
Called Cardio exchange and spoke with Dr. Yovani Holt made aware of patient's condition, with no orders.
--- NOTE | 2021-04-02 23:15 | NUR ---
Called Pulmo exchange and spoke with Dr Dela Cruz made aware of patient's condition. Per Dr. Dela Cruz, to keep patient on Bipap until 7am and do ABG 8am. Noted and carried out.
[2021-04-03] VITALS (25 sets, daily range): BP systolic 107–172; BP diastolic 54–77
[2021-04-03] MEDS: IV NORMAL SALINE 250 ML IV PRN (00:10)
[2021-04-03] MEDS: METRONIDAZOLE 500 MG/NS 100ML 500 MG in PREMIXED 1 EACH IV SCH ×3 (01:04→18:46)
--- NOTE | 2021-04-03 03:36 | NUR ---
Pt is currently on BIPAP on settings of IPAP 26, EPAP 8, resp. rate 30 and FIO2-100%. No resp. distress noted. Pt to be monitored for the duration of the shift. Alarms have been checked and remain audible.
[2021-04-03] MEDS: BLOOD SUGAR DIAGNOSTIC 1 EACH STRIP VI SCH ×4 (05:11→23:39)
[2021-04-03 05:17] LABS: MEAN CORPUSCULAR HEMOGLOBIN 28.4 uug (24.7-32.8); MEAN CORPUSCULAR VOLUME 89.3 fL (75.5-95.3); PLATELET COUNT (AUTO) 238 K/uL (179-408)
[2021-04-03 05:28] LABS: HEMATOCRIT 20.6 % (31.2-41.9)
[2021-04-03 05:53] LABS: LYMPHOCYTES % (MANUAL) 1 % (20-40); MONOCYTES % (MANUAL) 2 % (2-10); NEUTROPHILS % (MANUAL) 97 % (42-75)
--- NOTE | 2021-04-03 06:00 | NUR ---
Notified Esperanza Tee NP of critical lab results H/H, with new orders to transfuse 1u PRBC now.
[2021-04-03 06:12] LABS: CARBON DIOXIDE 40 mmol/L (21-32); CHLORIDE 111 mmol/L (98-107); CREATININE 0.4 mg/dL (0.6-1.3); GLUCOSE 112 mg/dL (74-106); MAGNESIUM 2.1 mg/dL (1.8-2.4); PHOSPHOROUS 3.1 mg/dL (2.5-4.9); POTASSIUM 3.7 mmol/L (3.5-5.1); UREA NITROGEN, BLOOD 40 mg/dL (7-18)
--- NOTE | 2021-04-03 06:43 | NUR ---
Left patient asleep, on bipap machine with the settings of 26/8, rate 30, FiO2 100%. CONSTANTINO PICC line and MASSIMO PICC line with ongoing TPN. Accordeon drainage bag at left flank area and abdominal pad c/d/i at old right surgical site. Arreaga catheter and flexiseal intact. VSS. Endorsed to next shift for continuity of care.
--- NOTE | 2021-04-03 06:59 | NUR ---
Called lab and spoke with Marlin for follow up of blood. Per Marlin, she mentioned that, "We need to call [facility] for blood because we don't have any CLS here." Will endorsed to AM shift RN.
[2021-04-03] MEDS: DEXAMETHASONE SOD PHOSPHATE 4 MG INJ IV SCH (08:02)
[2021-04-03] MEDS: FAMOTIDINE. 20 MG/2 ML VIAL IV SCH ×2 (08:02→20:29)
[2021-04-03] MEDS: Z GUARD REMEDY PASTE 57 GM TUBE TOP SCH ×2 (08:02→20:30)
[2021-04-03] MEDS: LEVOTHYROXINE SODIUM 100 MCG VIAL IV SCH (08:02)
[2021-04-03 08:07] LABS: ABG BASE EXCESS 9.6 mmol/L; ABG HCO3 37.1 mmol/L; ABG PCO2 72.2 mmHg (35.0-45.0); ABG PH 7.329 (7.350-7.450); ABG PO2 60.3 mmHg (75.0-100.0); ABG SITE RIGHT RADIAL; ABG TOTAL HEMOGLOBIN 8.4 G/dL (12.0-16.0); COHb 0.8 % (0.5-1.5); MetHb 0.3 % (0.0-1.5); O2Hb 89.5 % (94.0-97.0)
[2021-04-03] MEDS ORDERED: POTASSIUM CHLORIDE 50 ML IV ONE (10:15)
[2021-04-03] MEDS: ACETAzolamide SODIUM 500 MG VIAL IV SCH (11:18)
[2021-04-03] MEDS: IV FAT EMULSIONS 20% 250 ML IV SCH (13:38)
[2021-04-03] MEDS ORDERED: TPN IV SCH ×2 (17:00)
[2021-04-03] MEDS: INSULIN REGULAR, HUMAN 300 UNIT/3 ML VIAL SQ PRN ×2 (18:47→23:39)
--- NOTE | 2021-04-03 19:00 | NUR ---
Received patient awake, A/Ox4, follows command, denies pain at this time, no signs of acute distress noted. On NRB mask @ 15LPM, O2 sat 90%. CONSTANTINO PICC line and MASSIMO PICC line with ongoing TPN as ordered. Accordeon drainage bag at L lateral abdomen. Abdominal dressing in place at the old right surgical site. Arreaga catheter draining well to gravity. Flexiseal intact.
--- NOTE | 2021-04-03 20:00 | NUR ---
Placed on bipap machine c/o RT Elizabeth. O2 sat=97%.
--- NOTE | 2021-04-03 20:30 | NUR ---
Significant other, Drew, at bedside, update given.
[2021-04-03] MEDS: INSULIN GLARGINE,HUM 300 UNITS/3 ML CARTRIDGE SQ SCH (21:42)
[2021-04-03] MEDS ORDERED: CEFTRIAXONE 1 G in IV DEXTROSE 5% 50 ML IV SCH (23:00)
[2021-04-03] MEDS: CEFTRIAXONE 1 G in IV DEXTROSE 5% 50 ML IV SCH (23:00)
--- NOTE | 2021-04-03 23:45 | NUR ---
Patient removed Bipap mask multiple times. Educated risk and benefits x3. Nods head and verbalized understanding. Placed Bipap mask on, O2 sat 100%.
[2021-04-04] VITALS (39 sets, daily range): BP systolic 73–156; BP diastolic 36–73
[2021-04-04] MEDS: METRONIDAZOLE 500 MG/NS 100ML 500 MG in PREMIXED 1 EACH IV SCH ×3 (01:35→18:32)
[2021-04-04] MEDS ORDERED: TPN BAG #29 IV SCH (03:00)
[2021-04-04] MEDS: IV NORMAL SALINE 250 ML IV PRN (03:31)
--- NOTE | 2021-04-04 04:00 | NUR ---
AM care done. Linen and dressing changed.
--- NOTE | 2021-04-04 05:00 | NUR ---
Patient placed on NRB mask @15LPM c/o RT Elizabeth, O2 sat=99%. Will continue to monitor closely.
[2021-04-04 05:23] LABS: HEMATOCRIT 29.8 % (31.2-41.9); MEAN CORPUSCULAR HEMOGLOBIN 29.6 uug (24.7-32.8); MEAN CORPUSCULAR VOLUME 89.7 fL (75.5-95.3); PLATELET COUNT (AUTO) 201 K/uL (179-408)
[2021-04-04] MEDS: BLOOD SUGAR DIAGNOSTIC 1 EACH STRIP VI SCH ×4 (05:25→19:08)
--- NOTE | 2021-04-04 05:30 | NUR ---
G done c/o RT Elizabeth.
--- NOTE | 2021-04-04 05:45 | NUR ---
Lab called and spoke with Douglas for critical lab WBC 39.7. Called [facility] exchange and spoke with Esperanza Tee NP with regards to critical lab result. Per Randal SCHMITZ, no new orders.
[2021-04-04 05:47] LABS: ABG BASE EXCESS 7.4 mmol/L; ABG HCO3 34.8 mmol/L; ABG PCO2 66.2 mmHg (35.0-45.0); ABG PH 7.339 (7.350-7.450); ABG PO2 116.3 mmHg (75.0-100.0); ABG SITE LEFT RADIAL; ABG TOTAL HEMOGLOBIN 10.2 G/dL (12.0-16.0); COHb 0.1 % (0.5-1.5); MetHb 0.3 % (0.0-1.5); O2Hb 97.6 % (94.0-97.0)
[2021-04-04 06:05] LABS: CARBON DIOXIDE 37 mmol/L (21-32); CHLORIDE 109 mmol/L (98-107); CREATININE 0.4 mg/dL (0.6-1.3); FERRITIN 1337 ng/mL (8-252); GLUCOSE 100 mg/dL (74-106); LACTATE DEHYDROGENASE 316 U/L (81-234); MAGNESIUM 1.7 mg/dL (1.8-2.4); PHOSPHOROUS 2.4 mg/dL (2.5-4.9); POTASSIUM 3.6 mmol/L (3.5-5.1); UREA NITROGEN, BLOOD 33 mg/dL (7-18)
--- NOTE | 2021-04-04 06:46 | NUR ---
Left patient asleep, arousable to name, no signs of acute distress noted. On NRB mask @ 15LPM, O2 sat 97%. CONSTANTINO PICC line and MASSIMO PICC line with ongoing TPN as ordered. Accordeon drainage bag at L lateral abdomen. Abdominal dressing in place at the old right surgical site. Arreaga catheter draining well to gravity. Flexiseal intact. Endorsed for continuity of care.
[2021-04-04] MEDS: ALPRAZOLAM 0.25 MG TABLET PO PRN (07:27)
--- NOTE | 2021-04-04 07:30 | NUR ---
Patient is agitated with legs hanging over the bedrails and mask off. Patient is too confused to understand that the mask needs to stay on. Mittens initiated. Patient repositioned and safety measures observed. Patient is sinus tachycardia, on NRB 15L 100%. vasques catheter intact, and rectal tube in place.
[2021-04-04 07:56] LABS: BAND % (MANUAL) 3 % (0-10); LYMPHOCYTES % (MANUAL) 1 % (20-40); METAMYELOCYTES % 1 % (0-1); MONOCYTES % (MANUAL) 1 % (2-10)
[2021-04-04 07:57] LABS: NEUTROPHILS % (MANUAL) 94 % (42-75)
[2021-04-04] MEDS: FAMOTIDINE. 20 MG/2 ML VIAL IV SCH ×2 (09:33→20:33)
[2021-04-04] MEDS: Z GUARD REMEDY PASTE 57 GM TUBE TOP SCH ×2 (09:33→20:37)
[2021-04-04] MEDS: ACETAzolamide SODIUM 500 MG VIAL IV SCH (09:33)
[2021-04-04] MEDS: LEVOTHYROXINE SODIUM 100 MCG VIAL IV SCH (09:33)
[2021-04-04] MEDS: DEXAMETHASONE SOD PHOSPHATE 4 MG INJ IV SCH (09:33)
[2021-04-04] MEDS ORDERED: VANCOMYCIN FOR PO/GT/NG USE PO SCH (10:30)
[2021-04-04] MEDS ORDERED: SWABABLE VALVE TRANSFER SET EA MC ONE (10:35)
[2021-04-04] MEDS ORDERED: IV NORMAL SALINE 250 ML IV ONE (10:36)
[2021-04-04] MEDS ORDERED: IOHEXOL 300MG/ML 100 ML INFUS..BTL ONE (10:36)
[2021-04-04] MEDS ORDERED: TPN BAG #30 IV SCH (13:00)
--- NOTE | 2021-04-04 13:14 | NUR ---
Notified Dr. Gardner that patients blood sugar is low and gave d50 and ordered random glucose per lab. no new orders at this time.
[2021-04-04] MEDS: VANCOMYCIN FOR PO/GT/NG USE PO SCH ×3 (13:51→21:49)
--- NOTE | 2021-04-04 14:15 | NUR ---
Patient continues to be confused and lethargic. ABG ordered and blood glucose checked. Blood glucose is 120.
[2021-04-04 14:35] LABS: ABG BASE EXCESS 4.6 mmol/L; ABG HCO3 33.6 mmol/L; ABG PCO2 78.7 mmHg (35.0-45.0); ABG PH 7.248 (7.350-7.450); ABG PO2 72.8 mmHg (75.0-100.0); ABG SITE LEFT RADIAL; ABG TOTAL HEMOGLOBIN 10.3 G/dL (12.0-16.0); COHb 0.3 % (0.5-1.5); MetHb 0.4 % (0.0-1.5)
--- NOTE | 2021-04-04 15:15 | NUR ---
Etomodate [address] Hernandez, and Succinylcholine 100mg in preparation for intubation.
--- NOTE | 2021-04-04 15:20 | NUR ---
Patient intubated with ETT 7.5cm 23 at the lipline, ac 19 TV 400, peep 5, 100% fio2. Xray ordered for placement. Patient started on 15 mcg/kg/min of propofol.
[2021-04-04] MEDS ORDERED: SODIUM PHOSPHATE MM 7.5 MMOL in IV NORMAL SALINE 100 ML IV ONE (15:30)
--- NOTE | 2021-04-04 15:57 | NUR ---
pt intubated with e.t. tube size 7.5 secured at 23 cm at mid lip line. placed on settings of ac 18, vt 400, peep 5 and fio2 100%. abg to follow as ordered.
[2021-04-04] MEDS: PROPOFOL 100 ML IV PRN ×2 (16:04→22:19)
[2021-04-04 16:43] LABS: ABG PCO2 66.7 mmHg (35.0-45.0); ABG PH 7.285 (7.350-7.450); ABG PO2 78.6 mmHg (75.0-100.0); ABG SITE LEFT RADIAL; ABG TOTAL HEMOGLOBIN 10.6 G/dL (12.0-16.0); COHb 0.2 % (0.5-1.5); MetHb 0.5 % (0.0-1.5); O2Hb 94.4 % (94.0-97.0); VENT MODE VENT - A/C; VT, ABG 400 mL
[2021-04-04] MEDS: INSULIN REGULAR, HUMAN 300 UNIT/3 ML VIAL SQ PRN (19:09)
--- NOTE | 2021-04-04 19:15 | NUR ---
intubated vent settings ett 7.5 -23 cm ac24/tv400/peep5 /fio2 100%.very minimal secretions via the ett and via mouth ,secretions clear . weak gag reflex.when off sedation patient moved all extremities slow and weak and facial grimaces noted .rr rising and coughing on the vent back on sedation . continue to monitor vent and oxygenation .
[2021-04-04] MEDS: NOREPINEPHRINE BITARTRATE 8 MG in IV NORMAL SALINE 242 ML IV PRN (19:40)
--- NOTE | 2021-04-04 19:40 | NUR ---
bp low 80/38 hr =111 RR 24 started LEVOPHED drip follow protocol .
--- NOTE | 2021-04-04 20:15 | NUR ---
inserted NGT and for chest xray for verification of placement .
--- NOTE | 2021-04-04 20:26 | NUR ---
xray results tube feeding in placed tip in region of the fundus of the stomach .
[2021-04-04] MEDS: INSULIN GLARGINE,HUM 300 UNITS/3 ML CARTRIDGE SQ SCH (20:35)
--- NOTE | 2021-04-04 20:35 | NUR ---
fingerstick done result 189 mg/dl ,Lantus insulin given .
--- NOTE | 2021-04-04 20:44 | NUR ---
xray archives technician came and did portable chest xray .
--- NOTE | 2021-04-04 21:49 | NUR ---
vancomycin given via the ngt tube flushed ngt tube .patent .
[2021-04-04] MEDS: CEFTRIAXONE 1 G in IV DEXTROSE 5% 50 ML IV SCH (22:20)
[2021-04-04] MEDS ORDERED: TPN BAG #31 IV SCH (23:00)
--- NOTE | 2021-04-04 23:00 | NUR ---
pm care done ,bath patient ,changed soiled linens and gown . turned and reposition patient . offloaded back with pillow .
[2021-04-05] VITALS (95 sets, daily range): BP systolic 75–133; BP diastolic 46–71
--- NOTE | 2021-04-05 00:30 | NUR ---
photo taken c/o picture day . changed wound dressing .z guard applied to bilateral groin and sacral area cover with Mepilex.oral care done suction via ett and via oral .
[2021-04-05] MEDS: INSULIN REGULAR, HUMAN 300 UNIT/3 ML VIAL SQ PRN ×5 (00:49→23:16)
[2021-04-05] MEDS: BLOOD SUGAR DIAGNOSTIC 1 EACH STRIP VI SCH ×5 (00:49→23:15)
--- NOTE | 2021-04-05 01:47 | NUR ---
PATIENT ON CONT LOO VENT WITH 7.5 ET/TUBE IN PLACE AND SECURED WITH ANCHOR FAST , MOVE Q2 HOURS, VENT SETTINGS, A/C24, 400ML, 100%, PEEP 5, PT IS SEDATED , MOSTLY WITH CONTROLLED VENTILATION, SUCTION PRN, SLIGHT PALE YELL TINGE SECRETIONS, ORAL CARE, ALL VENT ALARMS, AMBU BAG AT BEDSIDE, . Ron DEUTSCHP Addendum: 04/05/21 at 0150 by MELISSA ISRAEL RT Amended: Links added.
[2021-04-05] MEDS: METRONIDAZOLE 500 MG/NS 100ML 500 MG in PREMIXED 1 EACH IV SCH ×3 (02:14→18:43)
[2021-04-05 05:22] LABS: HEMATOCRIT 25.2 % (31.2-41.9); MEAN CORPUSCULAR HEMOGLOBIN 29.2 uug (24.7-32.8); MEAN CORPUSCULAR VOLUME 90.6 fL (75.5-95.3); PLATELET COUNT (AUTO) 192 K/uL (179-408)
[2021-04-05 05:27] LABS: BILIRUBIN,DIRECT 0.1 mg/dL (0.0-0.2); BILIRUBIN,TOTAL 0.4 mg/dL (0.2-1.0); CREATININE 0.5 mg/dL (0.6-1.3); MAGNESIUM 2.1 mg/dL (1.8-2.4); PHOSPHOROUS 3.9 mg/dL (2.5-4.9); POTASSIUM 4.1 mmol/L (3.5-5.1)
[2021-04-05 06:10] LABS: ABG HCO3 31.2 mmol/L; ABG PCO2 55.4 mmHg (35.0-45.0); ABG PH 7.368 (7.350-7.450); ABG PO2 145.5 mmHg (75.0-100.0); ABG SITE LEFT RADIAL; ABG TOTAL HEMOGLOBIN 8.5 G/dL (12.0-16.0); MetHb 0.7 % (0.0-1.5); O2Hb 98.1 % (94.0-97.0); VENT MODE VENT - A/C; VT, ABG 400 mL
--- NOTE | 2021-04-05 07:40 | NUR ---
Received report from shift nurse manager nurse. Patient sedated on propofol 30, with ETT 7.5 32cm at the lipline. Sinus rhythm on the monitor, on levophed, abdominal drain in place, vasques intact, rectal tube draining. Air mattress inflated and side rails upx2.
[2021-04-05] MEDS: DEXAMETHASONE SOD PHOSPHATE 4 MG INJ IV SCH (08:37)
[2021-04-05] MEDS: LEVOTHYROXINE SODIUM 100 MCG VIAL IV SCH (08:38)
[2021-04-05] MEDS: FAMOTIDINE. 20 MG/2 ML VIAL IV SCH ×2 (08:38→20:34)
[2021-04-05] MEDS: ACETAzolamide SODIUM 500 MG VIAL IV SCH (08:38)
[2021-04-05] MEDS: VANCOMYCIN FOR PO/GT/NG USE PO SCH ×4 (08:39→20:35)
[2021-04-05] MEDS: Z GUARD REMEDY PASTE 57 GM TUBE TOP SCH ×2 (08:39→20:34)
[2021-04-05] MEDS: PROPOFOL 100 ML IV PRN ×2 (08:48→19:01)
[2021-04-05] MEDS ORDERED: TPN BAG #32 IV SCH ×2 (09:00→19:00)
[2021-04-05 10:47] LABS: NEUTROPHILS % (MANUAL) 0 % (42-75)
[2021-04-05] MEDS: NOREPINEPHRINE BITARTRATE 8 MG in IV NORMAL SALINE 242 ML IV PRN (11:48)
--- NOTE | 2021-04-05 14:13 | NUR ---
Clinical Social Work Note and Medical Decision-Making Information Pt is now intubated and RN expressed concern re patient's domestic partner who appears confused and not aware of her grave condition. Spoke with Benjamin brother ) who lives in [place]. Brother wants patient to be DNR and does not want drastic measures. Advised Dr Gardner to call the brother, Benjamin. Patient " was a drinker" per [id number]. Patient neglected her health prior to getting COVID. She delayed getting treatment for pancreatis after a trip with girlfriends. She was receiving banana bags at home per family. Family report that her partner is " out of it and waxes and wanes " and a history of serving time in alf. He is an amputee and has multiple infections and is on a lot of narcotics per family. He also uses cannabis per family. 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 Brother, Benjamin and his , Sally de jesus RN, are willing to fly out if need be. They seem very realistic. Plan : Dr Gardner was notified by this automobile and property underwriter that family are wanting to talk to him and are wanting patient to be DNR. They will fly to [place] if need be. Caution needs to be exercised with domestic partner who is altered and on narcotics and cannabis per family. Biological brothers would be decision makers.
--- NOTE | 2021-04-05 14:45 | NUR ---
Dr. Wakefield in unit, discussed anticoagulation, tube feeding and left airspace with possibility of loculated pneumothorax according to Dr. Gonsalves. Patient to be taken to CT scan when able to get consent by family for contrast. Dr. Wakefield will follow up with orders about above discussed.
[2021-04-05] MEDS: IV NORMAL SALINE 250 ML IV PRN (14:56)
--- NOTE | 2021-04-05 15:15 | NUR ---
This teletypewriter operator was contacted back by Drew (brother) in regards to consent for CT abd/pelvis and CT chest. Drew deferred consent to brother Benjamin which will call back to discuss consent for CT scans.
[2021-04-05] MEDS ORDERED: ENOXAPARIN SODIUM 30 MG/0.3 ML DISP.SYRIN SUBCUT SCH (16:45)
--- NOTE | 2021-04-05 19:30 | NUR ---
Report received. Patient orally intubated and on COVID-19 isolation. To mechanical ventilator with settings as follows: AC=24, NDF8=999%, DD=857zo and PEEP=5 cm. O2 sats 96-99%. Continuously sedated with Diprivan drip and on Levophed drip for BP support both via MASSIMO PICC line. Assessment done. Grimaces and moving arms to oral care and suctioning. With small amounts of thick white to beige colored secretions. Addendum: 04/05/21 at 215 by ANA HAMMER RN Amended: Links added. Addendum: 04/05/21 at 215 by ANA HAMMER RN Amended: Links added. Addendum: 04/05/21 at 2200 by ANA HAMMER RN Amended: Links added. Addendum: 04/05/21 at 2210 by ANA HAMMER RN Amended: Links added.
--- NOTE | 2021-04-05 19:40 | NUR ---
Pt rec'd on Moffett settings A/C 14, VT 450, PEEP +5 and FIO2-100%. 7.5 ETT is patent and secure at approx. 23cm ZOË. No resp. distress noted. Pt to monitored throughout the shift and PRN SX. BVM is at bedside. Moffett alarm parameters have been checked and remain audible.
--- NOTE | 2021-04-05 20:00 | NUR ---
Spoke to Dr. Cuellar ruby on rails web developer for Dr. Galvin re: blood cultures results 04/04 with Gram + cocci in clusters. Orders received. Addendum: 04/05/21 at 2200 by ANA HAMMER RN Amended: Links added. Addendum: 04/05/21 at 2210 by ANA HAMMER RN Amended: Links added.
--- NOTE | 2021-04-05 20:20 | NUR ---
breeder service technician Mary here. Blood cultures done. Specimen for Sputum culture, U/A with C/S and stool for OB sent to lab. Addendum: 04/05/21 at 2210 by ANA HAMMER RN Amended: Links added.
[2021-04-05] MEDS: INSULIN GLARGINE,HUM 300 UNITS/3 ML CARTRIDGE SQ SCH (20:46)
[2021-04-05] MEDS: VANCOMYCIN IV 750 MG in IV DEXTROSE 5% 250 ML IV SCH (21:04)
[2021-04-05 23:14] LABS: *OCCULT BLOOD STOOL POSITIVE (NEGATIVE)
[2021-04-05 23:23] LABS: *BILIRUBIN,URIN NEGATIVE (NEGATIVE); *CLARITY,URINE CLEAR (CLEAR); *COLOR,URINE YELLOW (YELLOW); *KETONES,URINE NEGATIVE (NEGATIVE); *UROBILINOGEN,URINE 0.2 E.U./dl (NORMAL); LEUKOCYTE ESTERASE ,URINE NEGATIVE (NEGATIVE); NITRITE, URINE NEGATIVE (NEGATIVE); PH,URINE 5.5 (5.0-8.0); UGLUCOSE NEGATIVE (NEGATIVE)
[2021-04-05 23:29] LABS: *BLOOD, URINE TRACE (NEGATIVE)
[2021-04-05 23:35] LABS: BACTERIA,URINE MODERATE /HPF (NONE SEEN); SQUAMOUS EPITHELIAL CELL,UR FEW /HPF (NONE SEEN); WBC,URINE 0-3 /HPF (0-3); YEAST,URINE MODERATE /HPF (NONE SEEN)
[2021-04-06] VITALS (37 sets, daily range): BP systolic 101–148; BP diastolic 51–73
[2021-04-06] MEDS: METRONIDAZOLE 500 MG/NS 100ML 500 MG in PREMIXED 1 EACH IV SCH ×2 (01:15→10:47)
[2021-04-06] MEDS: IV NORMAL SALINE 250 ML IV PRN (04:03)
[2021-04-06] MEDS: PROPOFOL 100 ML IV PRN ×2 (04:03→12:57)
[2021-04-06] MEDS: VANCOMYCIN IV 750 MG in IV DEXTROSE 5% 250 ML IV SCH ×2 (04:30→13:01)
[2021-04-06 05:05] LABS: MEAN CORPUSCULAR HEMOGLOBIN 29.5 uug (24.7-32.8); MEAN CORPUSCULAR VOLUME 91.5 fL (75.5-95.3); PLATELET COUNT (AUTO) 119 K/uL (179-408)
[2021-04-06] MEDS: BLOOD SUGAR DIAGNOSTIC 1 EACH STRIP VI SCH ×2 (05:11→11:10)
[2021-04-06] MEDS: INSULIN REGULAR, HUMAN 300 UNIT/3 ML VIAL SQ PRN ×2 (05:12→11:12)
[2021-04-06 05:21] LABS: CARBON DIOXIDE 32 mmol/L (21-32); CHLORIDE 103 mmol/L (98-107); CREATININE 0.4 mg/dL (0.6-1.3); GLUCOSE 228 mg/dL (74-106); MAGNESIUM 1.8 mg/dL (1.8-2.4); PHOSPHOROUS 3.4 mg/dL (2.5-4.9); POTASSIUM 3.7 mmol/L (3.5-5.1); UREA NITROGEN, BLOOD 37 mg/dL (7-18)
[2021-04-06 05:37] LABS: HEMATOCRIT 20.1 % (31.2-41.9)
--- NOTE | 2021-04-06 06:34 | NUR ---
Dr. Bustos here; informed of patient's condition. BPs stable; off Levophed drip since 99. design editor SR with rare PACs. Remains on Diprivan drip at 35 mcg/kg/min. Addendum: 04/06/21 at 0636 by ANA HAMMER RN Amended: Links added.
[2021-04-06] MEDS ORDERED: TPN BAG #34 IV SCH (08:00)
[2021-04-06 08:07] LABS: ABG BASE EXCESS 5.6 mmol/L; ABG HCO3 31.6 mmol/L; ABG PCO2 55.6 mmHg (35.0-45.0); ABG PH 7.372 (7.350-7.450); ABG PO2 217.9 mmHg (75.0-100.0); ABG SITE RIGHT RADIAL; ABG TOTAL HEMOGLOBIN 7.2 G/dL (12.0-16.0); COHb 0.4 % (0.5-1.5); MetHb 0.3 % (0.0-1.5); O2Hb 98.9 % (94.0-97.0); VENT MODE VENT - A/C; VT, ABG 400 mL
[2021-04-06] MEDS: ACETAzolamide SODIUM 500 MG VIAL IV SCH (08:20)
[2021-04-06] MEDS: DEXAMETHASONE SOD PHOSPHATE 4 MG INJ IV SCH (08:23)
[2021-04-06] MEDS: FAMOTIDINE. 20 MG/2 ML VIAL IV SCH (08:23)
[2021-04-06] MEDS: LEVOTHYROXINE SODIUM 100 MCG VIAL IV SCH (08:24)
[2021-04-06] MEDS: VANCOMYCIN FOR PO/GT/NG USE PO SCH ×2 (08:25→12:58)
[2021-04-06] MEDS: Z GUARD REMEDY PASTE 57 GM TUBE TOP SCH (08:26)
[2021-04-06] MEDS ORDERED: INSULIN GLARGINE,HUM 300 UNITS/3 ML CARTRIDGE SQ SCH (09:30)
--- NOTE | 2021-04-06 10:00 | NUR ---
Pulmonary services, Dr. Gonsalves int he unit to examine pt. report given orders received and implemented.
--- NOTE | 2021-04-06 10:50 | NUR ---
TV 450 and FIO2 down to 80% at this time.
[2021-04-06 11:57] LABS: IRON, SERUM 14 ug/dL (50-175)
--- NOTE | 2021-04-06 12:15 | NUR ---
A call from Benjamin Mccullough pt's brother and He was updated on his sister condition as requested and as stated "no decision yet on CT with and w/o contrast.
[2021-04-06 12:32] LABS: FERRITIN 1362 ng/mL (8-252)
--- NOTE | 2021-04-06 14:40 | NUR ---
A call from Dr. Gardner and at this time orders to contact Mr. Benjamin Mccullough at and witness Mr. Alexander's decision to terminally extubate pt. and have on morphine drip for comfort only. I spoke with Mr. Alexander and nursing maintenance mechanic supervisor Vero Christine witness the statement as well. " want my sister to be terminally extubated and placed on comfort measures"
--- NOTE | 2021-04-06 15:55 | NUR ---
A call to [facility] to report plans for terminal extubation decision taken by brother 1 hour ago. At this time I spoke with Ms. Christianson report given and as stated " patient is rule out for any possible organ donation, just call back when pt. " C# [id number].
[2021-04-06] MEDS: MORPHINE SULFATE PF IV DRIP 100 MG in IV DEXTROSE 5% 96 ML IV PRN (16:59)
--- NOTE | 2021-04-06 17:12 | NUR ---
Pt. started on morphine drip and at this time terminally extubated, immediately saturation drop to the 70's and still going down. Addendum: 04/06/21 at 1723 by ANNMARIE INIGUEZ RN SBP 140/61 hr of 82. RR of 11-12.
--- NOTE | 2021-04-06 17:12 | NUR ---
Pt terminally extubated and placed on 4Lpm N/C. RN Arlin at bedside.
--- NOTE | 2021-04-06 17:43 | NUR ---
Pt's belongings slate picker by Drew Henao domestic partner. Drew left with all belongings for specific details see property management form.
[2021-04-06] MEDS ORDERED: TPN BAG #35 IV SCH (18:00)
--- NOTE | 2021-04-06 19:09 | NUR ---
Patient left off ventilator and morphine drip,. Receiving R.N. informed to follow up with [facility] to report TOD.
--- NOTE | 2021-04-06 19:30 | NUR ---
Report received. Patient on COVID isolation and was terminally extubated this pm, on Morphine drip at 3 mg/H. Opens eyes spontaneously, doesn't focus, with mild facial grimace. RR regular non labored. laboratory monitor: SR. Morphine drip increased to 4 mg/H. Will continue to monitor.
--- NOTE | 2021-04-06 21:48 | NUR ---
Dr. Wakefield called; updated of patient's condition.
[2021-04-07] VITALS (15 sets, daily range): BP systolic 59–114; BP diastolic 32–53
--- NOTE | 2021-04-07 06:52 | NUR ---
Remains on Morphine drip now at 7 mg/H. RR agonal; O2 sats 89% on 2 LNC O2. day care provider: SR rate 90's.
[2021-04-07] MEDS: MORPHINE SULFATE PF IV DRIP 100 MG in IV DEXTROSE 5% 96 ML IV PRN (08:06)
--- NOTE | 2021-04-07 08:30 | NUR ---
Patient's brother Benjamin called; updated of condition. Informed of the process when patient expires. Claims they will make mortuary arrangements today. Addendum: 04/07/21 at 0949 by ANA HAMMER RN Amended: Links added.
--- NOTE | 2021-04-07 09:30 | NUR ---
Seen by Dr. Gonsalves; made aware that patient is on comfort care with on going Morphine drip.
--- NOTE | 2021-04-07 10:00 | NUR ---
With increased agonal breathing during turning. Morphine drip titrated to 8mg/H.
--- NOTE | 2021-04-07 10:38 | NUR ---
Dr. Wakefield called; updated of patient's condition. Ordered to increase Morphine drip to 10 mg/H.
--- NOTE | 2021-04-07 13:23 | NUR ---
Remains in SR, With agonal breathing. Morphine drip at 12mg/H. O2 sat 88-91% on 2 L NC O2. Addendum: 04/07/21 at 1323 by ANA HAMMER RN Amended: Links added.
--- NOTE | 2021-04-07 13:30 | NUR ---
Report received. Patient on COVID isolation, on comfort measures, on Morphine drip @ 12mg/hr. Agonal breathing noted, SR on the monitor. Will continue to monitor.
--- NOTE | 2021-04-07 14:38 | NUR ---
Patient is apneic for 5 minutes. Pupils fixed and dilated. No audible heart tones, breath sounds for 1 minute. No palpable pulses for 1 minute. No corneal reflexes. Patient pronounced at 1438. Physicians notified.
--- NOTE | 2021-04-07 14:47 | NUR ---
Dr. Gardner made aware of patient's time of .
--- NOTE | 2021-04-07 14:53 | NUR ---
Notified Benjamin Mccullough (brother) of patient's time of .
--- NOTE | 2021-04-07 15:00 | NUR ---
Notified Shuttle Repairer Vero Mack RN of patient's .
--- NOTE | 2021-04-07 15:09 | NUR ---
Called [facility] and spoke with Quita, updated patient's time of Ref# [id number].
--- NOTE | 2021-04-07 15:15 | NUR ---
Post mortem care done. Placed to body bag with tags attached.
--- NOTE | 2021-04-07 16:01 | NUR ---
Lucero from [facility] called, gave report, with Case #[id number]. Lucero stated, "Patient is not a candidate for tissue donation."
--- NOTE | 2021-04-07 16:30 | NUR ---
Body sent to [facility].
== END 2021-04-07 14:36 | DRG 720 ==
LOC: ER 20:03 → CCU 23:40
PROVIDERS: ADMIT Nurse Practitioner Acute Care; ATTEND Nurse Practitioner Acute Care
PROC: 5A09557 Assistance with Respiratory Ventilation, Greater than 96 Consecutive Hours, Continuous Positive Airway Pressure (ICD-10-PCS; principal; 2021-03-20)
PROC: 0W993ZX Drainage of Right Pleural Cavity, Percutaneous Approach, Diagnostic (ICD-10-PCS; principal; 2021-03-20)
PROC: 0W9B3ZX Drainage of Left Pleural Cavity, Percutaneous Approach, Diagnostic (ICD-10-PCS; principal; 2021-03-20)
PROC: XW033E5 Introduction of Remdesivir Anti-infective into Peripheral Vein, Percutaneous Approach, New Technology Group 5 (ICD-10-PCS; 2021-03-21)
PROC: 02HV33Z Insertion of Infusion Device into Superior Vena Cava, Percutaneous Approach (ICD-10-PCS; 2021-03-22)
PROC: 30243N1 Transfusion of Nonautologous Red Blood Cells into Central Vein, Percutaneous Approach (ICD-10-PCS; 2021-03-23)
PROC: 0BH17EZ Insertion of Endotracheal Airway into Trachea, Via Natural or Artificial Opening (ICD-10-PCS; 2021-04-04)
PROC: 5A1945Z Respiratory Ventilation, 24-96 Consecutive Hours (ICD-10-PCS; 2021-04-04)
DX: A41.89 Other specified sepsis (principal); R40.20 Unspecified coma; J96.21 Acute and chronic respiratory failure with hypoxia; J12.82 Pneumonia due to coronavirus disease 2019; E43 Unspecified severe protein-calorie malnutrition; D61.818 Other pancytopenia; G93.41 Metabolic encephalopathy; A04.72 Enterocolitis due to Clostridium difficile, not specified as recurrent; J96.22 Acute and chronic respiratory failure with hypercapnia; K85.90 Acute pancreatitis without necrosis or infection, unspecified; Z51.5 Encounter for palliative care; U07.1 COVID-19; I82.621 Acute embolism and thrombosis of deep veins of right upper extremity; Z66 Do not resuscitate; E87.4 Mixed disorder of acid-base balance; E03.9 Hypothyroidism, unspecified; J90 Pleural effusion, not elsewhere classified; D64.9 Anemia, unspecified
CPT/HCPCS: 32555; 36415; 36569; 36600; 70030-TC; 71045; 71275; 76604; 76700; 82088; 82378; 82784; 83550; 83605; 83615; 83690; 83735; 83986; 84100; 84155; 84165; 84244; 84443; 84478; 85025; 85610; 85730; 86038; 86140; 86300; 86334; 86430; 86706; 86803; 86850; 86900; 86901; 86920; 87040; 87070; 87077; 87086; 87205; 87340; 87400; 88108-TC; 93005; 93307; 94002; 94003; 94660; 97161; A4663; A6209; G0378; J0360; J0456; J0696; J1100; J1120; J1650; J1815; J1940; J2270; J2274; J3370; J3475; J3480; J3490; J3535; J7040; J7050; J7060; J7131; P9012; P9016; Q9967; U0003